=== PATIENT | male | born 1955 | race Caucasian/White ===

== ENCOUNTER 2023-06-12 09:48 | Outpatient (AMB) | payer OTHER, SELFPAY ==
--- NOTE | 2023-06-12 10:00 | A.OFFVIS_ITS ---
Intake Vital Signs 06/12/23 10:01 Height 6 ft Weight 235 lb BMI 31.9 BP 120/88 Blood Pressure Location Lt brachial Position Sitting Pulse 77 Pulse Source Pulse Oximeter Intake Visit Reasons: Hypertension Iuss Acoustic Analyst Required: No Accompanied by: Spouse Allergies No Known Allergies Allergy (Verified 06/12/23 10:04) HPI HPI Comments History of Present Illness Details I had the delight of seeing Darshan in follow-up for his hypertension. He continues to be very active. He is compliant with his medications. He denies any chest pain, shortness of breath, proximal nocturnal dyspnea, orthopnea, pedal edema. He has no urinary or orthostatic symptoms. He does not take any excessive nonsteroidal anti-inflammatory medications. He monitors his blood pressure at home and is well controlled. He has gained some weight. He is not a smoker. He has not had any medication changes lately. He had been having prostatic issues and initially was on tamsulosin without much effect. He has been initiated on finasteride and is contemplating surgical intervention. His triglyceride levels have been high he but continues to take his simvastatin regularly. He hydrates himself well. He had no active complaints at the time of this office visit. [facility] Medical History (Updated 06/13/23 @ 05:35 by Ron Siegel MD) Hypertension Family History (Updated 06/12/23 @ 10:06 by Cata Lacey MA) Mother Hypertension Father Hypertension Social History (Updated 06/12/23 @ 10:06 by Cata Lacey MA) Alcohol intake: current Patient Tobacco Use Status: Never used Tobacco Physical Exam Vital Signs: Last Vital Signs Pulse 77 06/12/23 10:01 BP 120/88 06/12/23 10:01 BMI result Body Mass Index 31.9 Const General: comfortable and no acute distress Orientation/consciousness: patient oriented x3 HEENT Head: Yes normocephalic Mouth: Normal oral and palatal mucosa present Eyes EOM: EOMs intact bilaterally Neck Neck: Yes supple Resp Auscultation: clear to auscultation bilaterally Cardio Jugular venous distension: no JVD Rate: regular rate GI Palpation (GI): Soft to palpation Auscultation: normal bowel sounds General: Yes no CVA tenderness Back/Spine/Pelvis Back: no CVA tenderness Skin General skin exam: no rashes or lesions noted Neuro General: patient oriented x3 and moves all extremities Extrem General: Yes no pedal edema Assessment & Plan Assessment & Plan (1) Hypertension: Code(s): I10 - Essential (primary) hypertension Qualifiers: Hypertension type: primary hypertension Qualified Code(s): I10 - Essential (primary) hypertension Plan Darshan has longstanding hypertension. His blood pressure is currently well controlled on repeat reading in the office and by himself at home. He tries to maintain a low-sodium diet. He is very active. He has gained some weight. He is not a smoker. His triglyceride levels needs to be brought down. He could continue his current dose of antihypertensive medications and statins. He has no myalgia. His liver functions had been normal as per the patient. His electrolytes and renal functions had been acceptable. He has seen the urologist. His tamsulosin has been discontinued and is currently on finaste ride. He is contemplating surgical intervention as his urinary symptoms are affecting his quality of life. I did not make any medication changes today. All his and his 's questions were answered. Follow-up lab orders were done. Time spent during encounter, retrieval of data and documentation 24 minutes. Orders: Orders Electrolytes 06/12/23 I10 - Essential (primary) hypertension Blood Urea Nitrogen 06/12/23 I10 - Essential (primary) hypertension Creatinine 06/12/23 I10 - Essential (primary) hypertension Calcium 06/12/23 I10 - Essential (primary) hypertension Protein Creatinine Ratio, Ur 06/12/23 I10 - Essential (primary) hypertension Coding Level of Care Code Est Pt Level 3 (18931) Diagnoses Primary hypertension I10 Hypertension type: primary hypertension
[2023-06-12 10:01] VITALS: BP 120/88; PULSE 77; BMI 31.9
== END 2023-06-12 11:00 | disposition home or self-care (01) ==
PROVIDERS: Visit Provider Internal Medicine Nephrology
DX: I10 Essential (primary) hypertension (principal)
CPT/HCPCS: 99213

== ENCOUNTER → 2023-06-12 09:48 | Outpatient (BNVA) | payer OTHER, SELFPAY | PROVIDERS: Visit Provider Internal Medicine Nephrology ==

== ENCOUNTER 2024-04-06 09:47 | Outpatient (AMB) | payer OTHER, SELFPAY ==
--- NOTE | 2024-04-06 09:55 | HO.NEPHOV ---
Vital Signs 04/06/24 09:56 Height 6 ft Weight 230 lb BMI 31.2 BP 140/88 H Blood Pressure Location Lt brachial Position Sitting Pulse 72 Pulse Source Pulse Oximeter Pulse Oximetry (%) 91 L Oxygen Delivery Method Room Air Intake Visit Reasons: follow-up - Conf Hot Plate Plywood Press Laborer Required: No Accompanied by: Self / Same As Patient Allergies No Known Allergies Allergy (Verified 04/06/24 09:57) HPI Comments Details: I had the delight of seeing Darshan in follow-up for his hypertension. He continues to be very active. He is compliant with his medications. He had TURP . At that time he was found to bladder cancer which has been closely followed by Urology. He also COVID pneumonia. He is back to baseline. He denies any chest pain, shortness of breath, proximal nocturnal dyspnea, orthopnea, pedal edema. He has no urinary or orthostatic symptoms. He does not take any excessive nonsteroidal anti-inflammatory medications. He monitors his blood pressure at home and is well controlled. He is not a smoker. His triglyceride levels have been high he but continues to take his simvastatin regularly. He hydrates himself well. He had no active complaints at the time of this office visit. [facility] Medical History (Updated 06/13/23 @ 05:35 by Ron Siegel MD) Hypertension Family History Mother Hypertension Father Hypertension Social History Alcohol intake: current Patient Tobacco Use Status: Never used Tobacco Review of Systems Const All systems reviewed & are unremarkable except as noted in HPI and below Physical Exam Vital Signs: Last Vital Signs Pulse 72 04/06/24 09:56 BP 140/88 H 04/06/24 09:56 Pulse Ox 91 L 04/06/24 09:56 Oxygen Delivery Method Room Air 04/06/24 09:56 BMI result Body Mass Index 31.2 Const General: comfortable and no acute distress Orientation/consciousness: patient oriented x3 HEENT Head: Yes normocephalic Mouth: Normal oral and palatal mucosa present Eyes EOM: EOMs intact bilaterally Neck Neck: Yes supple Resp Auscultation: clear to auscultation bilaterally Cardio Jugular venous distension: no JVD Rate: regular rate GI Palpation (GI): Soft to palpation Auscultation: normal bowel sounds General: Yes no CVA tenderness Back/Spine/Pelvis Back: no CVA tenderness Skin General skin exam: no rashes or lesions noted Neuro General: patient oriented x3 and moves all extremities Extrem General: Yes no pedal edema Results Reviewed Nephrology Results: No Data to Display Assessment & Plan Assessment & Plan (1) Hypertension: Code(s): I10 - Essential (primary) hypertension Category: Medical Qualifiers: Hypertension type: primary hypertension Qualified Code(s): I10 - Essential (primary) hypertension Plan Darshan has longstanding hypertension. His blood pressure is currently well controlled . He tries to maintain a low-sodium diet. He is very active. He is not a smoker. His triglyceride levels needs to be brought down. He could continue his current dose of antihypertensive medications and statins. He has no myalgia. His liver functions had been normal as per the patient. His electrolytes and renal functions had been acceptable. He follows up closely with urologist. I did not make any medication changes today. Follow-up lab ordered. Orders: Orders Creatinine Today I10 - Essential (primary) hypertension Calcium Today I10 - Essential (primary) hypertension Protein Creatinine Ratio, Ur Today I10 - Essential (primary) hypertension Blood Urea Nitrogen Today I10 - Essential (primary) hypertension Electrolytes Today I10 - Essential (primary) hypertension UA and rflx microscopic Today I10 - Essential (primary) hypertension Coding Level of Care Code Est Pt Level 4 (22212) Diagnoses Primary hypertension I10 Hypertension type: primary hypertension
[2024-04-06 09:56] VITALS: BP 140/88; PULSE 72; O2SAT 91; BMI 31.2
== END 2024-04-06 10:19 | disposition home or self-care (01) ==
PROVIDERS: Visit Provider Internal Medicine Nephrology
DX: I10 Essential (primary) hypertension (principal)
CPT/HCPCS: 99214

== ENCOUNTER → 2024-04-06 09:47 | Outpatient (BNVA) | payer OTHER, SELFPAY | PROVIDERS: Visit Provider Internal Medicine Nephrology ==

== ENCOUNTER 2025-05-23 09:36 | Outpatient (REF) | payer OTHER, SELFPAY ==
--- OUTSIDE RECORDS SUMMARY | 2025-04-11 10:58 | XMS_ITS ---
Author Organization [facility] Address [address] [place], [place] [phone] Care Team Providers Care Bicycle Repair Technician Name Role Phone ROBERT ENGEL Primary Care Provider [phone] REASON FOR VISIT Referral to police judge Encounters Encounter Location Date Provider Diagnosis [facility] [address] [place] [phone] 04/11/2025 ROBERT ENGEL PLAN OF TREATMENT Next Appt Details Provider Name:ROBERT MCCORD, 07/18/2025 12:45:00 PM, [address] [place], [address],
--- OUTSIDE RECORDS SUMMARY | 2025-04-13 07:23 | XMS_ITS ---
Author Organization [facility] Address [address] [place], [place] [phone] Care Team Providers Care Cant Gang Sawyer Name Role Phone ROBERT ENGEL Primary Care Provider REASON FOR REFERRAL Reason Referral to Dr. Pricila Lambert pulmonary send the past pulmonary consult notes my note in the last year x-rays CAT scans to him Diagnosis 1 Nocturnal hypoxia (G 47.34) Referral Organization [facility] Referring Provider First Name ROBERT Referring Provider Last Name TORO Referring Provider Speciality Internal M edicine Referral Priority Routine REASON FOR VISIT dr mari Encounters Encounter Location Date Provider Diagnosis [address] [address] 04/13/2025 ROBERT ENGEL Nocturnal hypoxia G47.34 ASSESSMENTS [...] Provider Name:ROBERT MCCORD, 07/18/2025 12:45:00 PM, [address] [place], [address], Consultation Request Notes Referral Date Referring Provider Referred Provider Not es 04/13/2025 ROBERT ENGEL , Referral to Dr. Jason Lambert pulmonary send the past pulmonary consult notes my note in the last year x-rays CAT scans to him
--- OUTSIDE RECORDS SUMMARY | 2025-04-14 06:30 | XMS_ITS ---
Author Organization [facility] Address [address] [place], [place] [phone] Care Team Providers Care Ux Developer Name Role Phone ROBERT ENGEL Primary Care Provider REASON FOR VISIT Fax Info Encounters Encounter Location Date Provider Diagnosis [facility] [address] [place] [phone] 04/14/2025 ROBERT ENGEL PLAN OF TREATMENT Next Appt Details Provider Name:ROBERT MCCORD, 07/18/2025 12:45:00 PM, [address] [place], [address],
--- OUTSIDE RECORDS SUMMARY | 2025-04-16 06:05 | XMS_ITS ---
Author Organization [facility] Address [address] [place], [place] [phone] Care Team Providers Care Mechanical Press Operator Name Role Phone ROBERT ENGEL Primary Care Provider [phone] Encounters Encounter Location Date Provider Diagnosis [address] [address] 04/16/2025 ROBERT ENGEL PLAN OF TREATMENT Next Appt Details Provider Name:ROBERT MCCORD, 07/18/2025 12:45:00 PM, [address] [place], [address],
--- OUTSIDE RECORDS SUMMARY | 2025-04-16 06:10 | XMS_ITS ---
Author Organization [facility] Address [address] [place], [place] [phone] Care Team Providers Care Retail Custodial Associate Name Role Phone ROBERT ENGEL Primary Care Provider RESULTS Component Value Reference Range Notes Exercise Stress Test Reviewed date:05/03/2025 09:22:09 AM Interpretation: Performing Lab: Notes/Report: Exercise Stress Test Reviewed date:05/03/2025 09:22:09 AM Interpretation: Performing Lab: Notes/Report: Encounters Encounter Location Date Provider Diagnosis [address] [address] 04/16/2025 ROBERT ENGEL Nocturnal hypoxia G47.34 ASSESSMENTS Encounter Date Diagnosis Assessment Notes Treatment Notes Treatment Clinical Notes Section Notes 04/16/2025 Nocturnal hypoxia (ICD-10 - G47.34) PLAN OF TREATMENT Next Appt Details Provider Name:ROBERT MCCORD, 07/18/2025 12:45:00 PM, [address] [place] [address], [address],
--- OUTSIDE RECORDS SUMMARY | 2025-04-18 07:03 | XMS_ITS ---
Author Organization [facility] Address [address] [place], [place] [phone] Care Team Providers Care District Sales Representative Name Role Phone ROBERT ENGEL Primary Care Provider REASON FOR VISIT dr tena notes Encounters Encounter Location Date Provider Diagnosis [facility] [address] [place] [address] 04/18/2025 ROBERT ENGEL PLAN OF TREATMENT Next Appt Details Provider Name:ROBERT MCCORD, 07/18/2025 12:45:00 PM, [address] [place], [address],
--- OUTSIDE RECORDS SUMMARY | 2025-04-21 09:54 | XMS_ITS ---
Author Organization [facility] Address [address] [place], [place] [phone] Care Team Providers Care Cinder Pit Crane Operator Name Role Phone ROBERT ENGEL Primary Care Provider REASON FOR VISIT Pulm Referral Encounters Encounter Location Date Provider Diagnosis [address] [address] 04/21/2025 ROBERT ENGEL PLAN OF TREATMENT Next Appt Details Provider Name:ROBERT MCCORD, 07/18/2025 12:45:00 PM, [address] [place], [address],
--- OUTSIDE RECORDS SUMMARY | 2025-04-26 09:59 | XMS_ITS ---
Author Organization [facility] Address [address] [place], [place] [phone] Care Team Providers Care Electrician Front Name Role Phone ROBERT ENGEL Primary Care Provider [phone] REASON FOR VISIT Fax Order Encounters Encounter Location Date Provider Diagnosis [address] [address] 04/26/2025 ROBERT ENGEL PLAN OF TREATMENT Next Appt Details Provider Name:ROBERT MCCORD, 07/18/2025 12:45:00 PM, [address] [place], [address],
--- OUTSIDE RECORDS SUMMARY | 2025-05-03 05:21 | XMS_ITS ---
Author Organization [facility] Address [address] [place], [place] [phone] Care Team Providers Care Digital Production Artist Name Role Phone ROBERT ENGEL Primary Care Provider REASON FOR VISIT stress test Encounters Encounter Location Date Provider Diagnosis [facility] [address] [place] [phone] 05/03/2025 ROBERT ENGEL PLAN OF TREATMENT Next Appt Details Provider Name:ROBERT MCCORD, 07/18/2025 12:45:00 PM, [address] [place], [address],
--- OUTSIDE RECORDS SUMMARY | 2025-05-17 07:12 | XMS_ITS ---
Author Organization [facility] Address [address] [place], [place] [phone] Care Team Providers Care Jelly Maker Name Role Phone ROBERT ENGEL Primary Care Provider [phone] REASON FOR VISIT Fax Info Encounters Encounter Location Date Provider Diagnosis [facility] [address] [place] [phone] 05/17/2025 ROBERT ENGEL PLAN OF TREATMENT Next Appt Details Provider Name:ROBERT MCCORD, 07/18/2025 12:45:00 PM, [address] [place], [address],
--- OUTSIDE RECORDS SUMMARY | 2025-05-23 10:56 | XMS_ITS | Clinical Summary ---
Author Organization [facility] Address [address] [place] [address] [place] [phone] Phone Care Team Providers Care Director Of Brand Marketing Name Role Phone Shun Perkins MD Primary Care Provider [phone] Encounters Date Type Department Care Team Description 03/04/2025 Telephone [facility] [address] [place] [phone] Unknown, Unknown, Insurance Non- Contracted from Last 3 Months Social History Tobacco Use Types Packs/Day Years Used Date Smoking Tobacco: Never Assessed Sex and Gender Information Value Date Recorded Sex Assigned at Not on file Legal Sex Male 1:36 PM EDT Gender Identity Not on file Sexual Orientation Not on file Plan of Treatment Not on file Medical Devices [place] [id number] [facility] [place] [facility] [place] [address] [facility] H[facility] Care Teams Director Of Brand Marketing Relationship Specialty Start Date End Date Shun Perkins MD [address] [place] [address] PCP - General Internal Medicine 03/02/25 Additional Source Comments The information contained in this document represents components of the legal health record. It is not the complete legal health record.[facility]
--- OUTSIDE RECORDS SUMMARY | 2025-05-23 10:56 | XMS_ITS | Encounter Summary ---
Author Organization [facility] Address [address] [place] [address] [place] [address] Phone Care Team Providers Care Pcb Designer Name Role Phone Shun Perkins MD Primary Care Provider + [phone] Reason for Visit * Reason Onset Date Comments Insurance Non- Contracted 03/04/2025 Encounter Details Date Type Department Care Team (Late st Contact Info) Description 03/04/2025 Telephone [facility] [address] [place] [address] Unknown, Unknown, Insurance Non- Contracted Social History Tobacco Use Types Packs/Day Years Used Date Smoking Tobacco: Never Assessed Sex and Gender Information Value Date Recorded Sex Assigned at Not on file Legal Sex Male 1:36 PM EDT Gender Identity Not on file Sexual Orientation Not on file documented as of this encounter Progress Notes * Madelyn Maher - 03/04/2025 10:33 AM EDT Hi Nikko, This patient's is calling to be scheduled in pulmonary for hypoxia; however, their insurance is coming up as non- contract. Please give the patients a call to discuss and advise. Thanks, Madelyn Sharp [facility] Coordinator Department of Medicine documented in this encounter Plan of Treatment Not on file documented as of this encounter Visit Diagnoses Not on filedocumented in this encounter Care Teams Pcb Designer Relationship Specialty Start Date End Date Shun Perkins MD [address] [place] [phone] PCP - General Internal Medicine 03/02/25 documented as of this encounter Additional Source Comments The information contained in this document represents components of the legal health record. It is not the complete legal health record.[facility]
--- OUTSIDE RECORDS SUMMARY | 2025-05-23 10:56 | XMS_ITS | Encounter Summary ---
Author Organization [facility] [place] [address] Care Team Providers Care Final Cleaner Name Role Phone Shun Perkins MD Primary Care Provider + [phone] Encounter Details Date Type Department Care Team (Late Contact Info) Description 11/29/2024 Lab Requisition [facility] - Main Lab 299 Count Includes [facility] [place] [address] Antonio Romero MD [address] [facility] 120 [place] [phone] Malignant neoplasm of dome of bladder ([facility]/HCC V24, [facility]/HCC V28) Social History Tobacco Use Types Packs/Day Years Used Date Smoking Tobacco: Never Smokeless Tobacco: Never Alcohol Use Standard Drinks/Week Comments Yes 0 (1 standard drink = 0.6 oz pur e alcohol) 7 Interpersonal Safety Answer Date Record ed Physical Abuse Unrecognized value 07/07/2024 Verbal Abuse Unrecognized value 07/07/2024 Sex and Gender Information Value Date Recorded Sex Assigned at Not on file Legal Sex Male 9:11 AM EST Gender Identity Not on file Sexual Orientation Not on file documented as of this encounter Plan of Treatment Upcoming Encounters Date Type Department Care Team (Late Contact Info) Description 06/07/2025 8:30 AM EST Appointment [facility] CT Scan [address] [place] [address] 06/21/2025 9:30 AM EST Office Visit Pulmonology - [place] 175 [facility] [address] [place] [phone] Kellee Hernández MD 230 [place] [phone] 08/10/2025 2:30 PM EST Office Visit [facility] - [facility] 101 300 [facility] 101 [place] [phone] Anders Campa MD 300 [facility] 101 [place] [address] documented as of this encounter Procedures Procedure Name Priority Date/Time Associated Diagnosis Comments AP OUTSIDE CONSULT Routine 11/24/2024 12 :00 AM EDT Malignant neoplasm of dome of bladder (CMS/HCC V24, CMS/HCC V28) documented in this encounter Results * Anatomic pathology outside consult (11/24/2024 12:00 AM EDT) Final Diagnosis A. Urine, Voided, ([id number]): Negative for high grade urothelial carcinoma. Results of UroVysion fluorescence in situ hybridization (FISH) testing: CEP3: Normal CEP7: Normal CEP17: Normal LSI 9p21: Normal Interpretation: Normal profile Controls stained appropriately. Note: The results are intended as a screening device and should be interpreted in association with other clinical and pathological findings. 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 Urine, Voided, [id number]: Received one ThinPrep slide for cytology and one ThinPrep slide for UroVysion FISH 12/02/2024 12:29 PM EDT [facility] Disclaimer Unless otherwise specified, all tissue is 10% NB formalin fixed and paraffin embedded. Technical pathology services provided by [facility] at [address], [place] [address] (CLIA #[id number]/Gianna Fuentes MD, Supply Clerk) 12/02/2024 12:29 PM EDT [facility] Tissue Urine specimen from urethra / Unknown 11/24/2024 11/29/2024 10:10 AM EDT us Antonio Romero MD LAB PATHOLOGY ORDERABLES Final Result [facility] [address] [place] [address], documented in this encounter Visit Diagnoses Diagnosis Malignant neoplasm of dome of bladder (CMS/HCC V24, CMS/HCC V28) Malignant neoplasm of dome of urinary bladder documented in this encounter Care Teams Final Cleaner Relationship Specialty Start Date End Date Shun Perkins MD [address] [place] [phone] PCP - General Internal Medicine 06/25/24 documented as of this encounter
--- OUTSIDE RECORDS SUMMARY | 2025-05-23 10:56 | XMS_ITS | Clinical Summary ---
Author Organization [facility] Address [address] [place] [address] Phone Care Team Providers Care Cra Officer Name Role Phone Shun Perkins MD Primary Care Provider [phone] Allergies No known active allergies Medications losartan-hydroC HLOROthiazide (HYZAAR) 100-25 mg per tablet Take 1 tablet by mouth 1 (one) time each day. Active simvastatin (ZOCOR) 10 mg tablet Take 1 tablet (10 mg total) by mouth. at bedtime Active meloxicam (MOBIC) 15 mg tablet Take 1 tablet (15 mg total) by mouth 1 (one) time each day. 01/13/2025 Active Active Problems Problem Noted Date Diagnosed Date Pulmonary arterial hypertension (CMS/HCC V24, CM S/HCC V28) 12/27/2024 Pneumonitis 12/27/2024 Class 1 obesity 12/21/2024 Hypoxia 12/21/2024 Essential hypertension 10/30/2020 Encounters Date Type Department Care Team Description 04/25/2025 Telephone [facility]iology [facility] [address] [facility] [address] [place] [address] Shun Perkins MD 04/21/2025 Telephone [facility] [address] [place] [phone] Shun Perkins MD 04/20/2025 Telephone Pulmonology [facility] [address] [place] [phone] Anna Bergeron MA 04/19/2025 Telephone Pulmonology [facility] 175 [facility] [address] [place] [phone] Kellee Hernández MD 04/15/2025 Telephone [facility] Cardiology [facility] - [facility] [address] [place] [phone] Shun Perkins MD 04/14/[address] [place] [phone] Shun Perkins MD 04/14/[address] [place] [phone] Shun Perkins MD 04/11/2025 2:30 PM EDT Office Visit Pulmonology [facility] 175 [facility] [address] [place] [phone] Kellee Hernández MD Pneumonia due to infectious organism, unspecified laterality, unspecified part of lung (Primary Dx); Obstructive sleep apnea; Obesity (BMI 30-39.9); PFO (patent foramen ovale) 04/05/2025 12:30 PM EDT Ancillary Procedure [facility] [address] [place] [phone] Hypoxia; Obstructive sleep apnea; Pulmonary arterial hypertension (CMS/HCC V24, CMS/HCC V28) 03/11/2025 Telephone Pulmonology [facility] 175 [facility] [address] [place] [phone] Kellee Hernández MD from Last 3 Months Surgical History Surgery Date Site/Laterality Comments TRANSURETHRAL RESECTION OF PROSTATE HERNIA REPAIR TONSILLECTOMY Medical History Medical History Date Comments Hypertension Hyperlipidemia S/P Turp Bladder cancer (CMS/HCC V24, CMS/HCC V28) 2023 Hypoxemia Social History Tobacco Use Types Packs/Day Years Used Date Smoking Tobacco: Never Smokeless Tobacco: Never Tobacco Cessation:Counseling Given: Not Answered Alcohol Use Standard Drinks/Week Comments Yes 0 (1 standard drink = 0.6 oz pur e alcohol) 7 Interpersonal Safety Answer Date Record ed Physical Abuse Unrecognized value 07/07/2024 Verbal Abuse Unrecognized value 07/07/2024 Sex and Gender Information Value Date Recorded Sex Assigned at Not on file Legal Sex Male 9:11 AM EST Gender Identity Not on file Sexual Orientation Not on file Obstetrics History Last Filed Vital Signs Vital Sign Reading Time Taken Comments Blood Pressure 138/81 04/11/2025 2:25 PM EDT Pulse 94 04/11/2025 2:25 PM EDT Temperature 36.1 C (97 F) 04/11/2025 2:25 PM EDT Respiratory Rate 20 04/11/2025 2:25 PM EDT Oxygen Saturation 96% 04/11/2025 2:25 PM EDT Inhaled Oxygen Concentration - - Weight 108 kg (238 lb) 04/11/2025 2:25 PM EDT Height 182.9 cm (6') 04/11/2025 2:25 PM EDT Body Mass Index 32.28 04/11/2025 2:25 PM EDT Plan of Treatment Upcoming Encounters Date Type Department Care Team (Late st Contact Info) Description 06/07/2025 8:30 AM EST Appointment [facility] CT Scan [address] [place] [phone] 06/21/2025 9:30 AM EST Office Visit Pulmonology - [place] 175 [facility] 200 [place] [phone] Kellee Hernández MD [address] [place] [phone] 08/10/2025 2:30 PM EST Office Visit [facility] - [facility] [address] [phone] Anders Campa MD [address] [address] Health Maintenance Due Date Last Done Comments DTaP,Tdap,and Td Vaccines (1 - Tdap) 1974 Cholesterol Screening (Lipid Panel) 06/30/2022 Hepatitis C Screening 06/30/2022 Social Influencers of Health Screening 06/30/2022 Hypertension/CHF/CAD Annual BMP Blood Test 07/07/2024 Depression Screening 07/28/2024 COVID-19 Vaccine (5 - Moderna risk season) 2025 05/12/2024, 05/15/2023, 05/16/2022, Additional history exists Influenza Vaccine (#1) 2025 , 05/15/2023, 05/07/2022, Additional history exists Falls Risk Assessment 07/07/2025 07/07/2024 RSV Immunization Adult Patients (1 - 1-dose 75+ series) 2032 Colorectal Cancer Screening: Colonoscopy 07/07/2034 07/07/2024 Zoster Vaccines Completed 10/21/2018, 07/01/2018 Pneumococcal Vaccine: 50+ Years Completed 07/30/2022 HIB Vaccines Aged Out No longer eligi ble based on patient's age to complete this topic HPV Vaccines Aged Out No longer eligi ble based on patient's age to complete this topic Hepatitis A Vaccines Aged Out No long er eligible based on patient's age to complete this topic Hepatitis B Vaccines Aged Out No long er eligible based on patient's age to complete this topic IPV Vaccines Aged Out No longer eligi ble based on patient's age to complete this topic MMR Vaccines Aged Out No longer eligi ble based on patient's age to complete this topic Meningococcal ACWY Vaccine Aged Out N o longer eligible based on patient's age to complete this topic Meningococcal B Vaccine Aged Out No l onger eligible based on patient's age to complete this topic RSV Immunization Patients Under 20 months Aged Out No longer eligible based on patient's age to complete this topic Varicella Vaccines Aged Out No longer eligible based on patient's age to complete this topic Procedures Procedure Name Priority Date/Time Associated Diagnosis Comments HOME SLEEP TEST Routine 04/08/2025 10:56 AM EDT Hypoxia TRANSTHORACIC ECHOCARDIOGRAM (TTE) COMPLETE W/ CONTRAST & BUBBLE STUDY Routine 04/05/2025 1:24 PM EDT Hypoxia Obstructive sleep apnea Pulmonary arterial hypertension (CMS/HCC V24, CMS/HCC V28) COLONOSCOPY Routine 07/07/2024 10:01 AM EST Personal history of colon polyps, unspecified from Last 3 Months or Most Recently Relevant to Health Maintenance Results * Home sleep test (04/08/2025 10:56 AM EDT) us Kellee Hernández MD [facility]ENTER ORDERABLES Nicole barrera Result * (ABNORMAL) TRANSTHORACIC ECHOCARDIOGRAM (TTE) COMPLETE W/ CONTRAST & BUBBLE STUDY (04/05/2025 1:24 PM EDT) Left Atrium Minor Galloway 5.9 cm CV PACS Left Atrium Major Galloway 5.8 cm CV PACS LA Area Sys (A2C) 22 cm2 CV PACS LA Area Sys (A4C) 22 cm2 CV PACS LA Volume (BP) 64 mL CV PACS RA Area 13.0 cm2 CV PACS RA 2D Volume 29 mL CV PACS Aortic Sinus Valsalva 3.8 cm CV PACS Ascending Aorta 3.8 cm CV PACS IVSD 1.0 0.6 - 1.0 cm CV PACS LVIDD 4.7 4.2 - 5.8 cm CV PACS LVIDS 2.1(A) 2.5 - 4.0 cm CV PACS LVOT Diameter 2.4 cm CV PACS LVPWD 0.9 0.6 - 1.0 cm CV PACS MV E' Tissue Velocity Lateral 7 cm/s CV PACS MV E' Tissue Velocity Septal 5 cm/s CV PACS LVOT Area 4.5 cm2 CV PACS E Wave Deceleration Time 253(A) 119 - 242 ms CV PACS MV Peak A Jordin 0.93 m/s CV PACS MV Peak E Jordin 0.43 m/s CV PACS RV S' 15 cm/s CV PACS TAPSE 14 mm CV PACS TR Peak Velocity 2.51 m/s CV PACS TR Peak Gradient 25 mmHg CV PACS E/E' Ratio Septal 9 CV PACS E/E' Ratio Averaged 7 CV PACS Relative Wall Thickness ratio 0.38 CV PACS FS 55 % CV PACS LV Mass 2D 153 g CV PACS Ascending Aorta Index 1.65 cm/m2 CV PACS RA 2D Volume Index 13 mL/m2 CV PACS LVIDD Index 2.04 cm/m2 CV PACS LVIDS Index 0.91 cm/m2 CV PACS E/A Ratio 0.5 CV PACS E/E' Ratio Lateral 6 CV PACS LA Volume Index (BP) 28 mL/m2 CV PACS LV Mass Index 2D 67 g/m2 CV PACS BSA 2.35 m2 CV PACS Right Ventricular Peak Systolic Pressure 28 mmHg CV PACS Est. RA Pressure 3 mmHg CV PACS Anatomical Region Laterality Modality Ultrasound Narrative 04/06/2025 12:31 PM EDT Left Ventricle: Left ventricle cavity size is normal. Wall thickness is normal. Systolic function is normal with an ejection fraction of 55-60%. There are no regional LV wall motion abnormalities. There is age appropriate left ventricular diastolic function. Left Atrium: Left atrium cavity size is normal. Saline contrast study is suggestive of intracardiac shunt across the atrial septum. There is fvhb-ix-yxatc shunt at rest and pqkru-ou-zneh shunt on Valsalva noted. Right Ventricle: Right ventricle cavity appears normal. Systolic function is normal. Right Atrium: Right atrium cavity is normal. Mitral Valve: There is trace regurgitation. Aortic Valve: There is no regurgitation or stenosis. Aorta: The aortic root is mildly dilated. The ascending aorta is mildly dilated (3.8 cm). Left Ventricle Left ventricle cavity size is normal. Wall thickness is normal. Systolic function is normal with an ejection fraction of 55-60%. There are no regional LV wall motion abnormalities. There is age appropriate left ventricular diastolic function. Right Ventricle Right ventricle cavity appears normal. Systolic function is normal. Left Atrium Left atrium cavity size is normal. Saline contrast study is suggestive of intracardiac shunt across the atrial septum. There is lpum-jh-juokf shunt at rest and ohsxc-cf-cjav shunt on Valsalva noted. Right Atrium Right atrium cavity is normal. IVC/SVC Inferior vena cava structure is normal. Mitral Valve Mitral valve structure is normal. There is trace regurgitation. There is no evidence of mitral valve stenosis. Tricuspid Valve The leaflets exhibit normal excursion. There is trace regurgitation. There is no evidence of tricuspid valve stenosis. Estimated RA pressure is 3 mmHg. The RVSP is estimated at 28 mmHg. Aortic Valve The aortic valve is trileaflet. There is no regurgitation or stenosis. Pulmonic Valve Visualized portions of the pulmonic valve appear normal. There is no regurgitation or stenosis. Ascending Aorta The aortic root is mildly dilated. The ascending aorta is mildly dilated (3.8 cm). Pericardium Pericardium appears normal. There is no pericardial effusion. Study Details Overall the study quality was technically difficult. Definity contrast was given to enhance imaging and Saline (bubble) study was completed to enhance imaging. us Kellee Hernández MD CV ECHO PROCEDURES Final Res ult * COLONOSCOPY Anesthesia - MAC; [facility] ENDOSCOPY (07/07/2024 10:01 AM EST) Anatomical Region Laterality Modality Other 07/07/2024 9:43 AM EST Impressions 07/07/2024 10:06 AM EST - Diverticulosis in the sigmoid colon. - Three 5 to 7 mm polyps at the hepatic flexure, removed with a cold snare. Resected and retrieved. - The examination was otherwise normal on direct and retroflexion views. Recommendation: - Await pathology results. - Repeat colonoscopy in 3 years for surveillance. Narrative 07/07/2024 10:06 AM EST [facility] GI Patient Name: Pito Grande Procedure Date: 07/07/2024 9:43 AM Date of : 1955 Age: 69 Room: ROOM 14 Gender: Male Note Status: Finalized Attending MD: Pito Bernabe MD, Procedure Date No Time: 07/07/2024 Procedure: Colonoscopy Indications: High risk colon cancer surveillance: Personal history of colonic polyps Providers: Pito Bernabe MD Referring MD: Pito Bernabe MD Medicines: Propofol per Anesthesia Complications: No immediate complications. Estimated Blood Loss: Estimated blood loss: none. Procedure: Pre-Anesthesia Assessment: - ASA Grade Assessment: II - A patient with mild systemic disease. After I obtained informed consent, the scope was passed under direct vision. Throughout the procedure, the patient's blood pressure, pulse, and oxygen saturations were monitored continuously.The Olympus Colonoscope was introduced through the anus and advanced to the cecum, identified by appendiceal orifice and ileocecal valve. The colonoscopy was performed without difficulty. The patient tolerated the procedure well. The quality of the bowel preparation was good. Findings: The perianal and digital rectal examinations were normal. Multiple diverticula were found in the sigmoid colon. Three sessile polyps were found in the hepatic flexure. The polyps were 5 to 7 mm in size. These polyps were removed with a cold snare. Resection and retrieval were complete. The exam was otherwise without abnormality on direct and retroflexion views. Procedure Code(s): --- Professional --- 86060, Colonoscopy, flexible; with removal of tumor(s), polyp(s), or other lesion(s) by snare technique Diagnosis Code(s): --- Professional --- Z86.010, Personal history of colonic polyps D12.3, Benign neoplasm of transverse colon (hepatic flexure or splenic flexure) CPT copyright 2020 [employer]. All rights reserved. The codes documented in this report are preliminary and upon police worker review may be revised to meet current compliance requirements. Pito Bernabe MD 07/07/2024 10:05:54 AM This report has been signed electronically.Pito Bernabe MD Number of Addenda: 0 Note Initiated On: 07/07/2024 9:43 AM Scope In: Scope Out: Endoscopy Department at [facility] - [address] [place] [id number] Procedure Note Pito Bernabe MD - 07/07/2024 [facility] GI Patient Name: Pito Grande Procedure Date: 07/07/2024 9:43 AM Date of : 1955 Age: 69 Room: ROOM 14 Gender: Male Note Status: Finalized Attending MD: Pito Bernabe MD, Procedure Date No Time: 07/07/2024 Procedure: Colonoscopy Indications: High risk colon cancer surveillance: Personalhistory of colonic polyps Providers: Pito Bernabe MD Referring MD: Pito Bernabe MD Medicines: Propofol per Anesthesia Complications: No immediate complications. Estimated Blood Loss: Estimated blood loss: none. Procedure: Pre-Anesthesia Assessment: - ASA Grade Assessment: II - A patient with mild systemic disease. After I obtained informed consent, the scope was passed under direct vision. Throughout theprocedure, the patient's blood pressure, pulse, and oxygen saturations were monitored continuously.The Olympus Colonoscope was introduced through the anus and advanced to the cecum, identified by appendiceal orifice and ileocecal valve. The colonoscopy was performed without difficulty. The patient tolerated the procedure well. The quality of the bowel preparation was good. Findings: The perianal and digital rectal examinations were normal. Multiple diverticula were found in the sigmoidcolon. Three sessile polyps were found in the hepatic flexure. The polyps were 5 to 7 mm in size. These polyps were removed with a cold snare. Resectionand retrieval were complete. The exam was otherwise without abnormality ondirect and retroflexion views. Procedure Code(s): --- Professional --- 13050, Colonoscopy, flexible; with removal of tumor(s), polyp(s), or other lesion(s) by snare technique Diagnosis Code(s): --- Professional --- Z86.010, Personal history of colonic polyps D12.3, Benign neoplasm of transverse colon (hepatic flexure or splenic flexure) CPT copyright 2020 [employer]. All rights reserved. The codes documented in this report are preliminary and upon police worker reviewmay be revised to meet current compliance requirements. Pito Bernabe MD 07/07/2024 10:05:54 AM This report has been signed electronically.Pito Bernabe MD Number of Addenda: 0 Note Initiated On: 07/07/2024 9:43 AM Scope In: Scope Out: Endoscopy Department at [facility] - [address] [place] [phone] IMPRESSION: - Diverticulosis in the sigmoid colon. - Three 5 to 7 mm polyps at the hepatic flexure, removed with a cold snare. Resected andretrieved. - The examination was otherwise normal on directand retroflexion views. Recommendation: - Await pathology results. - Repeat colonoscopy in 3 years for surveillance. Pito Bernabe MD GI~PROCEDURE ORDERABLES Fin al Result from Last 3 Months or Most Recently Relevant to Health Maintenance Insurance [facility] Care Teams Cra Officer Relationship Specialty Start Date End Date Shun Perkins MD [address] [place] [address] PCP - General Internal Medicine 06/25/24
--- OUTSIDE RECORDS SUMMARY | 2025-05-23 10:56 | XMS_ITS | Encounter Summary ---
Author Organization [facility] Address [address] [place] [address] Care Team Providers Care Unit Coordinator Name Role Phone Shun Perkins MD Primary Care Provider [phone] Encounter Details Date Type Department Care Team (Late st Contact Info) Description 04/20/2025 Scanned Document Orthopedic [address] [phone] Shukri Whitlock MD [address] [phone] Social History Tobacco Use Types Packs/Day Years Used Date Smoking Tobacco: Never Assessed Sex and Gender Information Value Date Recorded Sex Assigned at Male 03/01/2025 11:13 AM EDT Legal Sex Male 4:27 PM EDT Gender Identity Male 03/01/2025 11:13 AM EDT Sexual Orientation Not on file documented as of this encounter Plan of Treatment Upcoming Encounters Date Type Department Care Team (Late st Contact Info) Description 07/12/2025 8:00 AM EST Office Visit Orthopedic [address] [phone] Shukri Whitlock MD [address] [phone] documented as of this encounter Visit Diagnoses Not on filedocumented in this encounter Care Teams Unit Coordinator Relationship Specialty Start Date End Date Shun Perkins MD [address] [place] [phone] PCP - General Internal Medicine 04/12/25 documented as of this encounter
--- OUTSIDE RECORDS SUMMARY | 2025-05-23 10:56 | XMS_ITS | Patient Health Record ---
Author Organization [facility] Address [address], [place] [id number] Care Team Providers Care Car Mechanic Name Role Phone ROBERT ENGEL Primary Care Provider [phone] ALLERGIES No Known Allergies REASON FOR REFERRAL Reason HOLD FOR LOCKED NOTE OV Dr. Hernández for shortness of breath and lower than expected oxygen saturation Diagnosis 1 Shortness of breath on exertion (R06.02) Referral Organization [facility] Referring Provider First Name ROBERT Referring Provider Last Name TORO Referring Provider Speciality Internal edicine Referred Provider MARY HERNÁNDEZ Referred Provider Specialty Pulmonary Di monchoes General Notes hold for locked note , Merlene BISHOP 09/03/2024 01:52:43 PM > Per telephone encounter pt saw Dr Hernández on 08/05/24>no referral required as is in network with Insurance plan>faxed to [phone] >encounter closed Referral Priority Urgent Referral Appointment Date 08/05/2024 Diagnosis 1 Borderline low oxyge n saturation level (R79.81) Referral Organization [facility] Referring Provider First Name ROBERT Referring Provider Last Name TORO Referring Provider Speciality Internal edicine General Notes Karlie BISHOP [place] 08/2024 04:00:58 PM > blank ref , pulm ref was previously started Referral Priority Routine Reason Referral to Dr. Carrie Whitlock [facility] for the left knee pain Diagnosis 1 Knee pain, unspecifi ed chronicity, unspecified laterality (M25.569) Referral Organization [facility] Referring Provider First Name ROBERT Referring Provider Last Name TORO Referring Provider Speciality Internal edicine Referral Priority Routine Reason 02/25/25 w appt Refe rral to Dr. Flavia Wetzel at [facility] evaluation for possible shellfish allergy Diagnosis 1 Allergy, sequela (T7 8.40XS) Referral Organization [facility] Referring Provider First Name ROBERT Referring Provider Last Name ENGEL Referring Provider [facility] Referred Provider FLAVIA WETZEL Referred Provider Specialty Allergy/Immu nology General Notes Merlene BISHOP P Admin 07/2024 08:34:59 AM > faxed medical referral and note (recent labs are in notes) to [facility] at [phone]>no referral required Referral Priority Routine Reason 03/04/25Referral to [facility] for consultation regarding nocturnal hypoxia patient will call Diagnosis 1 Nocturnal hypoxia (G 47.34) Referral Organization [facility] Referring Provider First Name ROBERT Referring Provider Last Name TORO Referring Provider [facility] Referred Provider Specialty Pulmonary Di seases General Notes Merlene BISHOP P Admin 02/2025 09:16:31 AM > , Referral to [facility] for consultation regarding nocturnal hypoxia, called [facility] at [phone] pt does not have appt>got fax number>also faxed oon paperwork to EDNA COLEY Lori P Admin 03/10/2025 10:46:56 AM > fax number is [phone]>office is OON with pts insurance>faxed OON Auth Request form to [facility] at [phone] Referral Priority Routine Reason [facility] Referral Organization [facility] Referring Provider First Name ROBERT Referring Provider Last Name TORO Referring Provider [facility] General Notes Calista BISHOP [place] 025 03:17:13 PM > [facility], Dr. Anders Campa , [address] , [address], [facility]. 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 Hernández says the patient has a hole in his heart. Patient was seen by Dr. Hernández today and the office note will be sent to Dr. Engel. [place] is aware Dr. Engel is not in the office this week., w/6 visits, EDNA,Calista Fisher MA 04/13/2025 11:22:29 AM > referral sent to pvc Referral Priority Urgent Reason Referral to Dr. Pricila Lambert pulmonary send the past pulmonary consult notes my note in the last year x-rays CAT scans to him Diagnosis 1 Nocturnal hypoxia (G 47.34) Referral Organization [facility] Referring Provider First Name ROBERT Referring Provider Last Name TORO Referring Provider Speciality Internal M edicine Referral Priority Routine MEDICATIONS Medication SIG (Take, Route, Frequency, Duration) Notes Start Date End Date Status Viagra 100 MG 1 tablet as needed O rally Once a day for 30 day(s) Active Multivitamin - 1 tab(s) orally once a day for 30 day(s) Active Vitamin D 25 MCG (1000 UT) 1 tab(s) oral ly once a day for 30 day(s) Active Losartan Potassium-HCTZ 100-25 MG 1 tablet Orally Once a day for 90 days 03/12/2023 Active Simvastatin 10 MG 1 tablet in the even ing orally once a day (at bedtime) for 90 days Active SOCIAL HISTORY Tobacco Use: Social History Observation Description Date Details (start date - stop date) Never Smoker NA - NA Sex Assigned At : Social History Observation Description Sex Assigned At Unknown Smoking Question Answer Notes Are you a: never smoker PROBLEMS Problem Type ICD Code Onset Dates Problem Status W/U Status Risk SNOMED Code Notes Problem H/o colon adenoma (211.3) Active confirmed Benign neopl asm of colon (25352724) Problem Abnormal findings on radiological or other exams of body structure, NEC (793.99) Active confirmed Radiology result abnormal (335149677) follow up cxr shows improved aeration in LLL, some residual scarring, likely related to previous pneumonia Problem Essential (primary) hypertension (I10) Active confirmed Essential hypertension (56823179) Problem Personal history of colonic polyps (Z86.010) Active confirmed 708794920 Problem Disorder of lipoprotein metabolism, 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) (385985205) Problem Nocturnal hypoxia (G47.34) Active confirmed 191898313 Problem Erectile dysfunction, unspecified erectile dysfunction type (N52.9) Active confirmed 412316255 Problem Benign prostatic hyperplasia, unspecified whether lower urinary tract symptoms present (N40.0) Active confirmed 367605843 Problem Allergy, sequela (T78.40XS) Active confirmed 165768246 VITAL SIGNS Blood pressure diastolic 78 mm Hg 02/24/2025 Height 72 in 02/24/2025 Blood pressure systolic 126 mm Hg 02/24/2025 Weight 230 lbs 02/24/2025 BMI 31.19 kg/m2 02/24/2025 Encounters Encounter Location Date Provider Diagnosis [address] [address] 06/01/2024 ROBERT ENGEL Essential (primary) hypertension I10 ; Disorder of lipoprotein metabolism, unspecified E78.9 and Benign prostatic hyperplasia, unspecified whether lower urinary tract symptoms present N40.0 [place] [id number] 2024 ROBERT ENGEL Essential (primary) hypertension I10 and Disorder of lipoprotein metabolism, unspecified E78.9 [place] [id number] 07/15/2024 ROBERT ENGEL Essential (primary) hypertension I10 ; Disorder of lipoprotein metabolism, unspecified E78.9 ; Pre-diabetes R73.03 ; Benign prostatic hyperplasia, unspecified whether lower urinary tract symptoms present N40.0 ; Borderline low oxygen saturation level R79.81 and Shortness of breath on exertion R06.[address] [address] 07/16/2024 ROBERT ENGEL [address] [address] 07/16/2024 ROBERT ENGEL [place] [id number]/16/2024 ROBERT ENGEL [address] [address] 07/19/2024 ROBERT ENGEL [address] [address] 07/19/2024 ROBERT ENGEL [address] [address] 07/24/2024 ROBERT ENGEL Pre-diabetes R73.03 [place] [phone] 08/04/2024 ROBERT ENGEL [facility] [address] [place] [address] 08/06/2024 ROBERT ENGEL [facility] [address] [place] [address] 10/20/2024 ROBERT [facility] [address] [place] [address] 12/06/2024 ROBERT ENGEL [facility] [address] [place] [address] 01/10/2025 ROBERT ENGEL [facility] [address] [place] [address] 01/10/2025 [facility] [address] [place] [address] 01/13/2025 ROBERT ENGEL Knee pain, unspecified chronicity, unspecified laterality M25.569 ; Essential (primary) hypertension I10 ; Disorder of lipoprotein metabolism, unspecified E78.9 ; Pre-diabetes R73.03 ; Colon cancer screening Z12.11 and Bladder tumor D49.[address] [address] 01/14/[address] [address] 02/21/[address] [address] 02/24/2025 ROBERT ENGEL Essential (primary) hypertension I10 ; Disorder of lipoprotein metabolism, unspecified E78.9 ; Colon cancer screening Z12.11 ; Bladder tumor D49.4 ; Nocturia R35.1 ; Erectile dysfunction, unspecified erectile dysfunction type N52.9 ; Allergy, sequela T78.40XS and Nocturnal hypoxia G47.[address] [address] 03/02/2025 [facility] [address] [place] [address] 03/04/[address] [address] 03/07/[address] [address] 03/10/[address] [address] 04/11/2025 ROBERT ENGEL [facility] [address] [place] [address] 04/13/2025 ROBERT ENGEL Nocturnal hypoxia G47.34 [facility] [address] [place] [address], [place] [address] 04/14/2025 ROBERT ENGLE [address] [place] [address] 04/16/2025 ROBERT ENGEL [facility] [address] [place] [address], [place] [address] 04/16/2025 ROBERT ENGEL Nocturnal hypoxia G47.[address] [place] [address] 04/18/2025 ROBERT ENGEL [address] [place] [address] 04/21/2025 ROBERT ENGEL [address] [place] [address] 04/26/2025 ROBERT ENGEL [address] [address] 05/03/2025 ROBERT ENGEL [address] [address] 05/17/2025 ROBERT ENGEL ASSESSMENTS Encounter Date Diagnosis Assessment Notes Treatment Notes Treatment Clinical Notes Section Notes 04/16/2025 Nocturnal hypoxia (ICD-10 - G47.34) 04/13/2025 Nocturnal hypoxia (ICD-10 - G47.34) 01/13/2025 Knee pain, unspecified chronicity, unspecified laterality (ICD-10 - M25.569) Symptoms x 3 weeks. Mild swelling of the left knee. No significant effusion noted. Check an x-ray. Check CBC sed rate uric acid and check a Lyme titer. Will treat with meloxicam for 1 to 2 weeks. Check x-ray. Set up for orthopedic consultation 01/13/2025 Essential (primary) hypertension (ICD-10 - I10) Stable no change in therapy seems to be well-controlled 07/24/2024 Pre-diabetes (ICD-10 - R73.03) 2024 Disorder of lipoprotein metabolism, unspecified (ICD-10 - E78.9) 2024 Essential (primary) hypertension (ICD-10 - I10) 06/01/2024 Disorder of lipoprotein metabolism, unspecified (ICD-10 - E78.9) 06/01/2024 Essential (primary) hypertension (ICD-10 - I10) 07/15/2024 Disorder of lipoprotein metabolism, unspecified (ICD-10 - E78.9) Continue statin. Check lipid profile total cholesterol goal is in 200 LDL less than 100 07/15/2024 Essential (primary) hypertension (ICD-10 - I10) Blood pressure well-controlled no change in therapy check EKG 02/24/2025 Disorder of lipoprotein metabolism, unspecified (ICD-10 - E78.9) Continue statin therapy review of systems negative for side effects check lipid profile LDL goal less than 100 total cholesterol less than 200 02/24/2025 Essential (primary) hypertension (ICD-10 - I10) Blood pressure on recheck within normal limits. Therefore no change in therapy. Strongly recommend patient monitor blood pressure at home 3-4 times a week instructed call if greater than 130/80. Walk 30 minutes a day no added salt diet liberalize potassium in the diet check EKG sinus rhythm no change 02/24/2025 Colon cancer screening (ICD-10 - Z12.11) Stable up-to-date physical exam normal no symptoms 07/15/2024 Pre-diabetes (ICD-10 - R73.03) No polyuria polydipsia no weight loss check blood sugar diet exercise weight management 06/01/2024 Benign prostatic hyperplasia, unspecified whether lower urinary tract symptoms present (ICD-10 - N40.0) 01/13/2025 Disorder of lipoprotein metabolism, unspecified (ICD-10 - E78.9) Diet exercise weight maintenance. Follow-up at next OV 02/24/2025 Bladder tumor (ICD-10 - D49.4) Follow-up with urology. Cystoscopy fortunately negative on recheck. Check UA 07/15/2024 Benign prostatic hyperplasia, unspecified whether lower urinary tract symptoms present (ICD-10 - N40.0) Check check PSA follow-up in 1 year if normal 01/13/2025 Pre-diabetes (ICD-10 - R73.03) Check blood sugar check A1c 02/24/2025 Nocturia (ICD-10 - R35.1) PSA up-to-date 07/15/2024 Borderline low oxygen saturation level (ICD-10 - R79.81) O2 sat adequate below for what I would expect with patient is not a COPD patient. He does not have a history of obstructive sleep apnea. Although he is never been tested although we are going to get this checked. No chest pain no CHF. Will check a chest x-ray check BNP check D-dimer check O2 sat 93% on room air. Set up consultation with pulmonary stat CT scan of the chest 01/13/2025 Colon cancer screening (ICD-10 - Z12.11) Colonoscopy up-to-date several polyps. Will recheck in 3 years 02/24/2025 Erectile dysfunction, unspecified erectile dysfunction type (ICD-10 - N52.9) As needed Viagra with good relief 07/15/2024 Shortness of breath on exertion (ICD-10 - R06.02) 01/13/2025 Bladder tumor (ICD-10 - D49.4) 02/24/2025 Allergy, sequela (ICD-10 - T78.40XS) Referral to Dr. Flavia Wetzel for allergy evaluation 02/24/2025 Nocturnal hypoxia (ICD-10 - G47.34) Pulmonary is not send me any records. Patient is on O2 at nighttime now. Will check the consultation reports. Also put a consult in for [facility] Department of pulmonary PLAN OF TREATMENT Future Test Test Name Order Date Prostate-Specific Ag (PSA)-[id number] 2023 CBC, Platelet, w/o Differential-[id number] 1 08/22/2023 Lipid Panel-[id number] 06/22/2024 Hepatic Function Panel ([id number] 2023 BMP8+[id number] 06/22/2024 Next Appt Details Provider Name:ROBERT MCCORD, 07/18/2025 12:45:00 PM, [address] [place], [address], Insurance Providers Payer Name Payer Address Payer Phone Subscriber Number Group Number Insured Name Patient Relationship to Insured Coverage Start Date Coverage End Date [facility] [address] [place] [id number] Self - patient is the insured 3 MEDICAL (GENERAL) HISTORY Medical History History ICD Code high cholesterol 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 yo polyps x 2 recheck May 2024 Hypertension Benign prostatic hypertrophy Dr. Herve Murdock ay 2023 OV Vaccination status COVID 4 s hots. Flu shot q. year. Pneumovax 2015. Tetanus 2021 Shingrix 2 shots Prediabetes. A1c 5.02 January 2023 Colonoscopy June 2024 3 polyps repea t June 2027 Urology follow-up May 2024 cystosco py negative. Status post TURP for Art Romero follow-u p October 2024 History of an incidentally found bladder tumor during TURP Chest CT October 2024 coronary artery calcifications. Scattered areas of bronchiolitis ordered by pulmonary Echocardiogram December 2024 Dr. Alex Pandey. EF 55 to 60% no valvular abnormalities Surgical History Surgery Date(Month/Year) T & A
--- OUTSIDE RECORDS SUMMARY | 2025-05-23 10:57 | XMS_ITS ---
Author Name [facility] Organization Unknown History of Medication Use Medication Directions Dispensed Refills Start Date End Date Stat us betamethasone acetate-betamethaso ne sodium phosphate (CELESTONE) injection 12 mg 12 mg, Intra-articular, Once PRN Procedure, Starting on Fri04/12/25 at 1515, For 1 dose 04/12/2025 04/12/2025 completed No known medications No known medications active Problems Problem Status Onset Date Problem Type Date of Resoluti on Source Acute pain of left knee active EncounterDiagnosisAct HHCCT Encounters Encounter Type Encounter Reason Primary Diagnosis Location Date Ambulatory Pain [facility] [place] 04/12/2025 [facility] [place] 03/01/2025 Ambulatory Pain in left knee Pain in left knee [facility] 03/01/2025 Care Team Organization Name Specialty Phone Email Start Date End Da te [employer] TORO Primary Care 04/12/2025 05/11/2025 [employer] ROBERT ENGEL Primary Care 04/12/2025 [employer] 03/03/2025 05/11/2025 [employer] NO PCP Primary Care 03/01/2025 [employer] 02/09/2025
--- OUTSIDE RECORDS SUMMARY | 2025-05-23 10:57 | XMS_ITS | Encounter Summary ---
Author Organization [facility] [place] [address] Care Team Providers Care Loan Expeditor Name Role Phone Shun Perkins MD Primary Care Provider + [phone] Encounter Details Date Type Department Care Team (Late Contact Info) Description 06/04/2024 Lab Requisition [facility] [address] [facility] [place] [phone] Antonio Romero MD [address] [facility] [address] [place] [phone] Malignant neoplasm of dome of bladder ([facility]/HCC V24, CMS/HCC V28) Social History Tobacco Use Types Packs/Day [...] Info) Description 06/07/2025 8:30 AM EST Appointment [facility] CT Scan [address] [place] [address] 06/21/2025 9:30 AM EST Office Visit Pulmonology - [place] [address] [facility] [address] [place] [address] Kellee Hernández MD [address] [place] [address] 08/10/2025 2:30 PM EST Office Visit [facility] [address] [phone] Anders Campa MD [address] [address] documented as of this encounter Procedures Procedure Name Priority Date/Time Associated Diagnosis Comments AP OUTSIDE CONSULT Routine 05/31/2024 12 :00 AM EST Malignant neoplasm of dome of bladder (CMS/HCC) documented in this encounter Results * Anatomic pathology outside consult (05/31/2024 12:00 AM EST) Final Diagnosis A. Urine, Voided ([id number]): Negative for high grade urothelial carcinoma. Results of [employer] fluorescence in situ hybridization (FISH) testing: CEP3: Normal CEP7: Normal CEP17: Normal LSI 9p21: Normal Interpretation: Normal profile Controls stained appropriately. Note: The results are intended as a screening device and should be interpreted in association with other clinical and pathological findings. 06/08/2024 12:35 PM [facility] Gross Description A. Urine, Voided, : [id number] Received 1 TP (CYTO) 1 TP (FISH) 06/08/2024 12:35 PM [facility] Disclaimer Unless otherwise specified, all tissue is 10% NB formalin fixed and paraffin embedded. 06/08/2024 12:35 PM [facility] Tissue Urine specimen from urethra / Unknown 05/31/2024 06/04/2024 4:27 PM EST Antonio Romero MD LAB PATHOLOGY ORDERABLES Final Result [facility] [address] [place] [address], documented in this encounter Visit Diagnoses Diagnosis Malignant neoplasm of dome of bladder (CMS/HCC V24, CMS/HCC V28) Malignant neoplasm of dome of urinary bladder documented in this encounter Care Teams Loan Expeditor Relationship Specialty Start Date End Date Shun Perkins MD [address] [place] [address] PCP - General Internal Medicine 06/25/24 documented as of this encounter
--- OUTSIDE RECORDS SUMMARY | 2025-05-23 10:57 | XMS_ITS | Clinical Summary ---
Author Organization [facility] Address [address] [place] [address] Care Team Providers Care Coil Shaper Name Role Phone Robert Engel MD Primary Care Provider [phone] Medications No known medications Active Problems No known active problems Encounters Date Type Department Care Team Description 04/20/2025 Scanned Document [facility] [address] [place] [address] Shukri Whitlock MD 04/20/2025 Orders Only [facility] [address] [phone] Shukri Whitlock MD Acute pain of left knee (Primary Dx) 04/20/2025 Orders Only [facility] [address] [phone] Shukri Whitlock MD 04/12/2025 3:15 PM EDT Office Visit [facility] [address] [phone] Shukri Whitlock MD Acute pain of left knee (Primary Dx) 03/01/2025 2:35 PM EDT Ancillary Procedure [facility] [address] [phone] 03/01/2025 2:15 PM EDT Consult [facility] [address] [phone] Shukri Whitlock MD Acute pain of left knee (Primary Dx) from Last 3 Months Social History Tobacco Use Types Packs/Day Years Used Date Smoking Tobacco: Never Assessed Sex and Gender Information Value Date Recorded Sex Assigned at Male 03/01/2025 11:13 AM EDT Legal Sex Male 4:27 PM EDT Gender Identity Male 03/01/2025 11:13 AM EDT Sexual Orientation Not on file Plan of Treatment Upcoming Encounters Date Type Department Care Team (Late st Contact Info) Description 07/12/2025 8:00 AM EST [facility] Visit [facility] [address] [phone] Shukri Whitlock MD [address] [facility] [address] [place] [address] Health Maintenance Due Date Last Done Comments Advance Care Planning 1955 Hepatitis C Virus Screening 1955 DTaP/Tdap/Td Vaccines (1 - Tdap) 1976 Colonoscopy 2002 Pneumococcal Vaccines 50+ (1 of 1 - PCV) 2007 Zoster (Shingles) Vaccine (1 of 2) 2007 Influenza Vaccine 02/25/2025 COVID-19 Vaccine (1 - 2023-2 5 season) 2025 RSV Vaccine 50 years and old er and Patients (1 - 1-dose 75+ series) 2032 Hepatitis B Vaccines Aged Out No long er eligible based on patient's age to complete this topic Procedures Procedure Name Priority Date/Time Associated Diagnosis Comments MRI KNEE W/O CONTRAST-LEFT Routine 05/18/2025 7:30 AM EDT Acute pain of left knee ID ARTHROCENTESIS ASPIR&/INJ MAJOR JT/BURSA W/O US Routine 04/12/2025 3:15 PM EDT Acute pain of left knee XR KNEE 4+ VIEWS-LEFT Routine 03/01/2025 2:40 PM EDT Acute pain of left knee from Last 3 Months Results * MRI Knee w/o contrast-Left (05/18/2025 7:30 AM EDT) Anatomical Region Laterality Modality Knee Left Magnetic Resonan ce 05/18/2025 7:00 AM EDT 05/18/2025 7:00 AM EDT Impressions 05/19/2025 1:54 PM EDT 1. Complex tearing of the medial meniscus posterior body and posterior horn with a meniscal flap adjacent to the posterior root measuring up to 1.0 cm. 2. Mild osseous contusions within the medial femoral condyle and adjacent medial tibial plateau. No associated fracture line. 3. Minimal patellofemoral and medial compartment arthrosis. Small joint effusion. Electronically signed by: Maciej Flores MD 05/19/2025 01:54 PM EDT RP Thank you for referring your patient to us, Maciej Flores MD [phone] (Electronically Signed - 05/19/2025 13:54) Copy: ROBERT ENGEL MD [address] [address] PATIENT , Narrative 05/19/2025 1:54 PM EDT EXAMINATION: MR KNEE WITHOUT CONTRAST, LEFT CLINICAL INFORMATION: Left knee pain. COMPARISON: No relevant prior studies are available for comparison. TECHNIQUE: Multiplanar MR images of the left knee were obtained on a high-field scanner without intravenous contrast. FINDINGS: MENISCI: Medial Meniscus: Complex tearing of the posterior body extending through the posterior horn with irregular components contacting both the femoral and tibial articular surfaces involving the inner two-thirds of the meniscus. There is a meniscal flap adjacent to the posterior root measuring up to 1.0 cm in greatest dimension. Lateral Meniscus: Intact. LIGAMENTS: Cruciate: Intact. Collateral: Intact. EXTENSOR MECHANISM: Intact quadriceps and patellar tendons. ARTICULAR CARTILAGE/BONE: Patellofemoral Compartment: Inferior medial trochlea signal heterogeneity with areas of fullness fissuring and tiny marginal osteophytes. Medial Compartment: Minimal central medial femoral condyle articular cartilage thinning and signal heterogeneity with tiny marginal osteophytes. Mild marrow edema within the medial femoral condyle and adjacent medial tibial plateau adjacent to the meniscal tear and consistent with osseous contusions. No fracture line. Lateral Compartment: Intact articular cartilage. JOINT FLUID AND BURSAE: Small joint effusion. Procedure Note Maciej Flores MD - 10/23/2025 EXAMINATION: MR KNEE WITHOUT CONTRAST, LEFT CLINICAL INFORMATION: Left knee pain. COMPARISON: No relevant prior studies are available for comparison. TECHNIQUE: Multiplanar MR images of the left knee were obtained on a high-fieldscanner without intravenous contrast. FINDINGS: MENISCI: Medial Meniscus: Complex tearing of the posterior body extending throughthe posterior horn with irregular components contacting both the femoraland tibial articular surfaces involving the inner two-thirds of themeniscus. There is a meniscal flap adjacent to the posterior root measuring up to 1.0 cm in greatestdimension. Lateral Meniscus: Intact. LIGAMENTS: Cruciate: Intact. Collateral: Intact. EXTENSOR MECHANISM: Intact quadriceps and patellar tendons. ARTICULAR CARTILAGE/BONE: Patellofemoral Compartment: Inferior medial trochlea signal heterogeneitywith areas of fullness fissuring and tiny marginal osteophytes. Medial Compartment: Minimal central medial femoral condyle articularcartilage thinning and signal heterogeneity with tiny marginalosteophytes. Mild marrow edema within the medial femoral condyle andadjacent medial tibial plateau adjacent to the meniscal tear and consistent with osseous contusions. No fracture line. Lateral Compartment: Intact articular cartilage. JOINT FLUID AND BURSAE: Small joint effusion. IMPRESSION: 1. Complex tearing of the medial meniscus posterior body and posteriorhorn with a meniscal flap adjacent to the posterior root measuring up to1.0 cm. 2. Mild osseous contusions within the medial femoral condyle and adjacentmedial tibial plateau. No associated fracture line. 3. Minimal patellofemoral and medial compartment arthrosis. Small jointeffusion. Electronically signed by: Maciej Flores MD 05/19/2025 01:54 PM EDT RPWorkstation: [id number] Thank you for referring your patient to us, Maciej Flores MD [id number] (Electronically Signed - 05/19/2025 13:54) Copy: ROBERT ENGEL MD [facility] [address] [place] [id number] PATIENT , us Shukri Whitlock MD IM MRI ORDERABLES Final Result * ID ARTHROCENTESIS ASPIR&/INJ MAJOR JT/BURSA W/O US (04/12/2025 3:15 PM EDT) Narrative Shukri Whitlock MD - 04/12/2025 3:15 PM EDT Shukri Whitlock MD 04/14/2025 7:01 AM Lg Joint Arthro: L knee on 04/12/2025 3:15 PM Indications: pain Details: 22 G needle, anteromedial approach Medications: 12 mg betamethasone acetate-betamethasone sodium phosphate 6 (3-3) MG/ML Outcome: tolerated well, no immediate complications The steroid was given with 4 mL of 1% lidocaine. We discussed that diabetic patients may experience elevation in blood sugars with steroid injection and that the patient should monitor their blood sugars accordingly. Risks of infection, bleeding, injury, failure of the injection to work were reviewed and understood. They understand the injection may take a few days to work and will last for a variable amount of time, typically between 3-6 months for most patients. It will not relieve all pain but can improve symptoms. Procedure, treatment alternatives, risks and benefits explained, specific risks discussed. Consent was given by the patient. Patient was prepped and draped in the usual sterile fashion. us Shukri Whitlock MD PROCEDURE/MINOR SURGICAL ORDERABLES Final Result * XR Knee 4+ views-Left (03/01/2025 2:40 PM EDT) Narrative [facility] - 03/01/2025 2:40 PM EDT This exam was performed in office at [facility] and images reviewed by orthopedic provider. Any findings are documented within ambulatory encounter note on date of service. us Shukri Whitlock MD IMG DIAGNOSTIC IMAGING O RDERABLES Final Result [facility] from Last 3 Months Insurance [facility] Care Teams Coil Shaper Relationship Specialty Start Date End Date Robert Engel MD [address] [place] [id number] PCP - General Internal Medicine 04/12/25
--- OUTSIDE RECORDS SUMMARY | 2025-05-23 10:57 | XMS_ITS | Clinical Summary ---
Author Organization [facility] Address [address] [facility] [address] [place] [address] Phone Care Team Providers Care Edi Specialist Name Role Phone Shun Perkins MD Primary Care Provider Allergies No known active allergies Medications Cholecalciferol 50 MCG (1999) capsule Take 1 capsule by mouth 1 (one) time each day Active simvastatin (ZOCOR) 10 MG tablet Take 1 tablet by mouth 1 (one) time each day 03/23/2021 Active tamsulosin (FLOMAX) 0.4 MG 24 hr capsule Take 0.4 mg by mouth 1 (one) time each day Active losartan-hydroC HLOROthiazide (HYZAAR) 100-25 MG per tablet TAKE 1 TABLET BY MOUTH DAILY 30 tablet 5 10/09/2022 Active Active Problems Problem Noted Date Diagnosed Date Hypertension 04/10/2021 Essential hypertension 10/30/2020 Family History Medical History Relation Comments Heart disease Father Hypertension Father Hypertension Mother Relation Status Comments Father Alive Mother Social History Tobacco Use Types Packs/Day Years Used Date Smoking Tobacco: Never Smokeless Tobacco: Never Alcohol Use Standard Drinks/Week Comments Yes 0 (1 standard drink = 0.6 oz pure alcohol) Alcoholic Drinks/day: Occasional social drink Sex and Gender Information Value Date Recorded Sex Assigned at Not on file Legal Sex Male 4:49 PM EST Gender Identity Not on file Sexual Orientation Not on file Last Filed Vital Signs Vital Sign Reading Time Taken Comments Blood Pressure 128/80 05/27/2022 1:06 PM EDT Pulse 64 05/27/2022 1:06 PM EDT Temperature - - Respiratory Rate - - Oxygen Saturation 96% 04/10/2021 3:26 PM EDT Inhaled Oxygen Concentration - - Weight 98 kg (216 lb) 04/10/2021 3:26 PM EDT Height 182.9 cm (6') 12/02/2019 12:01 PM EDT Body Mass Index 29.29 12/02/2019 12:01 PM EDT Plan of Treatment Health Maintenance Due Date Last Done Comments Pneumococcal Vaccine: 50+ Ye ars (1 of 2 - PCV) 1976 Colorectal Cancer Screening: Annual FOBT 2006 Colorectal Cancer Screening: Colonoscopy 2006 Colorectal Cancer Screening: Sigmoidoscopy 2006 Influenza Vaccine (#1) 2025 Hepatitis B Vaccine Aged Out No longe r eligible based on patient's age to complete this topic Insurance [facility] Care Teams Edi Specialist Relationship Specialty Start Date End Date Shun Perkins MD [address] [place] [address] [facility] - General 08/07/20
[2025-05-23 13:55] LABS: Anion Gap 13 (12-20); Blood Urea Nitrogen 19 mg/dL (9-16); Calcium 9.1 mg/dL (8.4-10.2); Carbon Dioxide 26 mmol/L (22-29); Chloride 108 mmol/L (96-108); Estimated Glomerular Filt Rate > 60; Potassium 3.8 mmol/L (3.3-5.1); Sodium 143 mmol/L (135-145)
== END 2025-05-23 09:37 | disposition home or self-care (01) ==
LOC: HO.HKASLDS 09:36
PROVIDERS: PCP Internal Medicine; Visit Provider Internal Medicine Hypertension Specialist
DX: I10 Essential (primary) hypertension (principal)
CPT/HCPCS: 36415; 80048

== ENCOUNTER 2025-05-26 10:46 | Outpatient (AMB) | payer OTHER, SELFPAY ==
--- OUTSIDE RECORDS SUMMARY | 2025-04-11 10:58 | XMS_ITS ---
Author Organization [facility] Address [address] [place], [place] [phone] Care Team Providers Care Outreach Specialist Name Role Phone ROBERT ENGEL Primary Care Provider REASON FOR VISIT Referral to hospital pharmacist Encounters Encounter Location Date Provider Diagnosis [facility] [address] [place] [phone] 04/11/2025 ROBERT ENGEL PLAN OF TREATMENT Next Appt Details Provider Name:ROBERT MCCORD, 07/18/2025 12:45:00 PM, [address] [place], [address],
--- OUTSIDE RECORDS SUMMARY | 2025-04-13 07:23 | XMS_ITS ---
Author Organization [facility] Address [address] [place], [place] [phone] Care Team Providers Care Make Up Arranger Name Role Phone ROBERT ENGEL Primary Care Provider [phone] REASON FOR REFERRAL Reason Referral to Dr. Pricila Lambert pulmonary send the past pulmonary consult notes my note in the last year x-rays CAT scans to him Diagnosis 1 Nocturnal hypoxia (G 47.34) Referral Organization [facility] Referring Provider First Name ROBERT Referring Provider Last Name TORO Referring Provider Speciality Internal M edicine Referral Priority Routine REASON FOR VISIT dr mari Encounters Encounter Location Date Provider Diagnosis [address] [address] 04/13/2025 ROBERT ENGEL Nocturnal hypoxia G47.34 ASSESSMENTS Encounter Date Diagnosis Assessment Notes Treatment Notes Treatment Clinical Notes Section Notes 04/13/2025 Nocturnal hypoxia (ICD-10 - G47.34) PLAN OF TREATMENT Referrals Referral Date Details Referral to Dr. Pricila Lambert pulmonary send the past pulmonary consult notes my note in the last year x-rays CAT scans to him Next Appt Details Provider Name:ROBERT MCCORD, 07/18/2025 12:45:00 PM, [address] [place], [address], Consultation Request Notes Referral Date Referring Provider Referred Provider Not es 04/13/2025 ROBERT ENGEL , Referral to Dr. Jason Lambert pulmonary send the past pulmonary consult notes my note in the last year x-rays CAT scans to him
--- OUTSIDE RECORDS SUMMARY | 2025-04-14 06:30 | XMS_ITS ---
Author Organization [facility] Address [address] [place], [place] [phone] Care Team Providers Care Grocery Clerk Marking Name Role Phone ROBERT ENGEL Primary Care Provider REASON FOR VISIT Fax Info Encounters Encounter Location Date Provider Diagnosis [facility] [address] [place] [phone] 04/14/2025 ROBERT ENGEL PLAN OF TREATMENT Next Appt Details Provider Name:ROBERT MCCORD, 07/18/2025 12:45:00 PM, [address] [place], [address],
--- OUTSIDE RECORDS SUMMARY | 2025-04-16 06:05 | XMS_ITS ---
Author Organization [facility] Address [address] [place], [place] [phone] Care Team Providers Care Crew Truck Driver Name Role Phone ROBERT ENGEL Primary Care Provider [phone] Encounters Encounter Location Date Provider Diagnosis [address] [address] 04/16/2025 ROBERT ENGEL PLAN OF TREATMENT Next Appt Details Provider Name:ROBERT MCCORD, 07/18/2025 12:45:00 PM, [address] [place], [address],
--- OUTSIDE RECORDS SUMMARY | 2025-04-16 06:10 | XMS_ITS ---
Author Organization [facility] Address [address] [place], [place] [phone] Care Team Providers Care Care Management Associate Name Role Phone ROBERT ENGEL Primary Care Provider RESULTS Component Value Reference Range Notes Exercise Stress Test Reviewed date:05/03/2025 09:22:09 AM Interpretation: Performing Lab: Notes/Report: Exercise Stress Test Reviewed date:05/03/2025 09:22:09 AM Interpretation: Performing Lab: Notes/Report: Encounters Encounter Location Date Provider Diagnosis [address] [address] 04/16/2025 ROBERT ENGEL Nocturnal hypoxia G47.34 ASSESSMENTS Encounter Date Diagnosis Assessment Notes Treatment Notes Treatment Clinical Notes Section Notes 04/16/2025 Nocturnal hypoxia (ICD-10 - G47.34) PLAN OF TREATMENT Next Appt Details Provider Name:ROBERT MCCORD, 07/18/2025 12:45:00 PM, [address] [place] [address], [phone],
--- OUTSIDE RECORDS SUMMARY | 2025-04-18 07:03 | XMS_ITS ---
Author Organization [facility] Address [address] [place], [place] [phone] Care Team Providers Care Platen Press Operator Name Role Phone ROBERT ENGEL Primary Care Provider [phone] tena notes Encounters Encounter Location Date Provider Diagnosis [facility] [address] [place] [address] 04/18/2025 ROBERT ENGEL PLAN OF TREATMENT Next Appt Details Provider Name:ROBERT MCCORD, 07/18/2025 12:45:00 PM, [address] [place], [address],
--- OUTSIDE RECORDS SUMMARY | 2025-04-21 09:54 | XMS_ITS ---
Author Organization [facility] Address [address] [place], [place] [phone] Care Team Providers Care Director Of Casework Services Name Role Phone ROBERT ENGEL Primary Care Provider REASON FOR VISIT Pulm Referral Encounters Encounter Location Date Provider Diagnosis [address] [address] 04/21/2025 ROBERT ENGEL PLAN OF TREATMENT Next Appt Details Provider Name:ROBERT MCCORD, 07/18/2025 12:45:00 PM, [address] [place], [address],
--- OUTSIDE RECORDS SUMMARY | 2025-04-26 09:59 | XMS_ITS ---
Author Organization [facility] Address [address] [place], [place] [phone] Care Team Providers Care Air Brake Operator Name Role Phone ROBERT ENGEL Primary Care Provider REASON FOR VISIT Fax Order Encounters Encounter Location Date Provider Diagnosis [address] [address] 04/26/2025 ROBERT ENGEL PLAN OF TREATMENT Next Appt Details Provider Name:ROBERT MCCORD, 07/18/2025 12:45:00 PM, [address] [place], [address],
--- OUTSIDE RECORDS SUMMARY | 2025-05-03 05:21 | XMS_ITS ---
Author Organization [facility] Address [address] [place], [place] [phone] Care Team Providers Care Sewer Pipe Layer Name Role Phone ROBERT ENGEL Primary Care Provider REASON FOR VISIT stress test Encounters Encounter Location Date Provider Diagnosis [facility] [address] [place] [phone] 05/03/2025 ROBERT ENGEL PLAN OF TREATMENT Next Appt Details Provider Name:ROBERT MCCORD, 07/18/2025 12:45:00 PM, [address] [place], [address],
--- OUTSIDE RECORDS SUMMARY | 2025-05-17 07:12 | XMS_ITS ---
Author Organization [facility] Address [address] [place], [place] [phone] Care Team Providers Care Tarper Name Role Phone ROBERT ENGEL Primary Care Provider REASON FOR VISIT Fax Info Encounters Encounter Location Date Provider Diagnosis [facility] [address] [place] [address] 05/17/2025 ROBERT ENGEL PLAN OF TREATMENT Next Appt Details Provider Name:ROBERT MCCORD, 07/18/2025 12:45:00 PM, [address] [place], [address],
--- NOTE | 2025-05-26 11:05 | HO.NEPHOV ---
Vital Signs 05/26/25 11:06 Height 6 ft Weight 148 lb 4 oz BMI 20.1 BP 124/80 Blood Pressure Location Lt brachial Position Sitting Pulse 86 Pulse Source Pulse Oximeter Pulse Oximetry (%) 92 Oxygen Delivery Method Room Air Intake Visit Reasons: 10 mon follow up-[facility] Core Shaper Sides Required: No Accompanied by: Self / Same As Patient Allergies No Known Allergies Allergy (Verified 05/26/25 11:06) HPI Comments Details: I had the delight of seeing Darshan in follow-up for his hypertension. He continues to be very active. He is compliant with his medications. He had TURP . At that time he was found to bladder cancer which has been closely followed by Urology. He is back to baseline. He denies any chest pain, shortness of breath, proximal nocturnal dyspnea, orthopnea, pedal edema. He has no urinary or orthostatic symptoms. He does not take any excessive nonsteroidal anti-inflammatory medications. He monitors his blood pressure at home and is well controlled. He is not a smoker. His triglyceride levels have been high he but continues to take his simvastatin regularly. He hydrates himself well. He had no active complaints at the time of this office visit. [facility] Medical History (Updated 06/13/23 @ 05:35 by Ron Siegel MD) Hypertension Family History Mother Hypertension Father Hypertension Social History Alcohol intake: current Patient Tobacco Use Status: Never used Tobacco Review of Systems Const All systems reviewed & are unremarkable except as noted in HPI and below Physical Exam Vital Signs: Last Vital Signs Pulse 86 05/26/25 11:06 BP 124/80 05/26/25 11:06 Pulse Ox 92 05/26/25 11:06 Oxygen Delivery Method Room Air 05/26/25 11:06 BMI result Body Mass Index 20.1 Const General: comfortable and no acute distress Orientation/consciousness: patient oriented x3 HEENT Head: Yes normocephalic Mouth: Normal oral and palatal mucosa present Eyes EOM: EOMs intact bilaterally Neck Neck: Yes supple Resp Auscultation: clear to auscultation bilaterally Cardio Jugular venous distension: no JVD Rate: regular rate GI Palpation (GI): Soft to palpation Auscultation: normal bowel sounds General: Yes no CVA tenderness Back/Spine/Pelvis Back: no CVA tenderness Skin General skin exam: no rashes or lesions noted Neuro General: patient oriented x3 and moves all extremities Extrem General: Yes no pedal edema Results Reviewed Nephrology Results: Sodium, (135-145) 143 mmol/L 05/23/25 Potassium, (3.3-5.1) 3.8 mmol/L 05/23/25 Chloride, (96-108) 108 mmol/L 05/23/25 Carbon Dioxide, (22-29) 26 mmol/L 05/23/25 BUN, (9-16) 19 mg/dL H 05/23/25 Creatinine, (0.5-1.4) 0.97 mg/dL 05/23/25 Calcium, (8.4-10.2) 9.1 mg/dL 05/23/25 Assessment & Plan Assessment & Plan (1) Hypertension: Code(s): I10 - Essential (primary) hypertension Category: Medical Qualifiers: Hypertension type: primary hypertension Qualified Code(s): I10 - Essential (primary) hypertension Plan Darshan has longstanding hypertension. His blood pressure is currently well controlled . He tries to maintain a low-sodium diet. He is very active. He is not a smoker. He could continue his current dose of antihypertensive medications and statins. He has no myalgia. His liver functions had been normal as per the patient. His electrolytes and renal functions had been acceptable. He follows up closely with urologist. I did not make any medication changes today. Follow-up lab ordered. Orders: Orders Protein Creatinine Ratio, Ur 1 Year I10 - Essential (primary) hypertension Calcium 1 Year I10 - Essential (primary) hypertension Creatinine 1 Year I10 - Essential (primary) hypertension Blood Urea Nitrogen 1 Year I10 - Essential (primary) hypertension Electrolytes 1 Year I10 - Essential (primary) hypertension Medications: New losartan-hydrochlorothiazide 100-25 mg 1 tab PO DAILY 90 tabs 5RF Coding Level of Care Code Est Pt Level 4 (65038) Diagnoses Primary hypertension I10 Hypertension type: primary hypertension
[2025-05-26 11:06] VITALS: BP 124/80; PULSE 86; O2SAT 92; BMI 20.1
--- OUTSIDE RECORDS SUMMARY | 2025-05-26 13:17 | XMS_ITS | Patient Health Record ---
Author Organization [facility] Address [address], [place] [id number] Care Team Providers Care Food Service Sales Representatives Name Role Phone ROBERT ENGEL Primary Care Provider ALLERGIES No Known Allergies REASON FOR REFERRAL Reason HOLD FOR LOCKED NOTE OV Dr. Hernández for shortness of breath and lower than expected oxygen saturation Diagnosis 1 Shortness of breath on exertion (R06.02) Referral Organization [facility] Referring Provider First Name ROBERT Referring Provider Last Name TORO Referring Provider Speciality Internal edicine Referred Provider MARY HERNÁNDEZ Referred Provider Specialty Pulmonary Di seases General Notes hold for locked note , Merlene BISHOP 09/03/2024 01:52:43 PM > Per telephone encounter pt saw Dr Hernández on 08/05/24>no referral required as is in network with Insurance plan>faxed to [phone] >encounter closed Referral Priority Urgent Referral Appointment Date 08/05/2024 Diagnosis 1 Borderline low oxyge n saturation level (R79.81) Referral Organization [facility] Referring Provider First Name ROBERT Referring Provider Last Name TORO Referring Provider Speciality Internal edicine General Notes Karlie BISHOP [place] 08/2024 04:00:58 PM > blank ref , pulm ref was previously started Referral Priority Routine Reason Referral to Dr. Carrie Whitlock [facility] for the left knee pain Diagnosis 1 Knee pain, unspecifi ed chronicity, unspecified laterality (M25.569) Referral Organization [facility] Referring Provider First Name ROBERT Referring Provider Last Name TORO Referring Provider Speciality Internal edicine Referral Priority Routine Reason 02/25/25 w appt Refe rral to Dr. Flavia Wetzel at [facility] evaluation for possible shellfish allergy Diagnosis 1 Allergy, sequela (T7 8.40XS) Referral Organization [facility] Referring Provider First Name ROBERT Referring Provider Last Name ENGEL Referring Provider [facility] Referred Provider FLAVIA WETZEL Referred Provider Specialty Allergy/Immu nology General Notes Merlene BISHOP P Admin 07/2024 08:34:59 AM > faxed medical referral and note (recent labs are in notes) to [facility] at [phone]>no referral required Referral Priority Routine Reason 03/04/25Referral to [facility] pulmonary for consultation regarding nocturnal hypoxia patient will call Diagnosis 1 Nocturnal hypoxia (G 47.34) Referral Organization [facility] Referring Provider First Name ROBERT Referring Provider Last Name TORO Referring Provider [facility] Referred Provider Specialty Pulmonary Di seases General Notes Merlene BISHOP P Admin 02/2025 09:16:31 AM > , Referral to [facility] pulmonary for consultation regarding nocturnal hypoxia, called [facility] at [phone] pt does not have appt>got fax number>also faxed oon paperwork to EDNA COLEY Lori P Admin 03/10/2025 10:46:56 AM > fax number is [phone]>office is OON with pts insurance>faxed OON Auth Request form to [facility] at [phone] Referral Priority Routine Reason [facility] Referral Organization [facility] Referring Provider First Name ROBERT Referring Provider Last Name TORO Referring Provider [facility] General Notes Calista BISHOP [place] 025 03:17:13 PM > [facility] Cardiology, Dr. Anders Campa , [address] [facility] , [address], [facility]. 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 Hernández says the patient has a [...] 1 Nocturnal hypoxia (G 47.34) Referral Organization [facility] Referring Provider First Name ROBERT Referring [...] Active confirmed Benign neopl asm of colon (24700553) Problem Abnormal findings on radiological or other exams of body structure, NEC (793.99) Active confirmed Radiology result abnormal (750029986) follow up cxr shows improved aeration in LLL, some residual scarring, likely related to previous pneumonia Problem Essential (primary) hypertension (I10) Active confirmed Essential hypertension (19661130) Problem Personal history of colonic polyps (Z86.010) Active confirmed 847236364 Problem Disorder of lipoprotein metabolism, 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) (701397614) Problem Nocturnal hypoxia (G47.34) Active confirmed 953102238 Problem Erectile dysfunction, unspecified erectile dysfunction type (N52.9) Active confirmed 880210940 Problem Benign prostatic hyperplasia, unspecified whether lower urinary tract symptoms present (N40.0) Active confirmed 488156252 Problem Allergy, sequela (T78.40XS) Active confirmed 172123441 VITAL SIGNS Blood pressure diastolic 78 mm Hg 02/24/2025 Height 72 in 02/24/2025 Blood pressure systolic 126 mm Hg 02/24/2025 Weight 230 lbs 02/24/2025 BMI 31.19 kg/m2 02/24/2025 Encounters Encounter Location Date Provider Diagnosis [address] [address] 06/01/2024 ROBERT ENGEL Essential (primary) hypertension I10 ; Disorder of lipoprotein metabolism, unspecified E78.9 and Benign prostatic hyperplasia, unspecified whether lower urinary tract symptoms present N40.0 [place] [phone] 2024 ROBERT ENGEL Essential (primary) hypertension I10 and Disorder of lipoprotein metabolism, unspecified E78.9 [place] [phone] 07/15/2024 ROBERT ENGEL Essential (primary) hypertension I10 ; Disorder of lipoprotein metabolism, unspecified E78.9 ; Pre-diabetes R73.03 ; Benign prostatic hyperplasia, unspecified whether lower urinary tract symptoms present N40.0 ; Borderline low oxygen saturation level R79.81 and Shortness of breath on exertion R06.[address] [address] 07/16/2024 ROBERT ENGEL [address] [address] 07/16/2024 ROBERT ENGEL [place] [address]/16/2024 ROBERT ENGEL [address] [address] 07/19/2024 ROBERT ENGEL [address] [address] 07/19/2024 ROBERT ENGEL [address] [address] 07/24/2024 ROBERT ENGEL Pre-diabetes R73.03 [place] [phone] 08/04/2024 ROBERT ENGEL [facility] [address] [place] [address] 08/06/2024 ROBERT ENGEL [facility] [address] [place] [address] 10/20/2024 ROBERT [facility] [address] [place] [address] 12/06/2024 ROBERT ENGEL [facility] [address] [place] [address] 01/10/2025 ROBERT ENGEL [facility] [address] [place] [address] 01/10/2025 [facility] [address] [place] [address] 01/13/2025 ROBERT ENGEL Knee pain, unspecified chronicity, unspecified laterality M25.569 ; Essential (primary) hypertension I10 ; Disorder of lipoprotein metabolism, unspecified E78.9 ; Pre-diabetes R73.03 ; Colon cancer screening Z12.11 and Bladder tumor D49.[address] [address] 01/14/[address] [address] 02/21/[address] [address] 02/24/2025 ROBERT ENGEL Essential (primary) hypertension I10 ; Disorder of lipoprotein metabolism, unspecified E78.9 ; Colon cancer screening Z12.11 ; Bladder tumor D49.4 ; Nocturia R35.1 ; Erectile dysfunction, unspecified erectile dysfunction type N52.9 ; Allergy, sequela T78.40XS and Nocturnal hypoxia G47.[address] [address] 03/02/2025 [facility] [address] [place] [address] 03/04/[address] [address] 03/07/[address] [address] 03/10/[address] [address] 04/11/[address] [facility] [address] [place] [address] 04/13/2025 ROBERT ENGEL Nocturnal hypoxia G47.[address] [facility] [address] [place] [address], [place] [address] 04/14/2025 ROBERT ENGEL [address] [place] [address] 04/16/[address] [facility] [address] [place] [address], [place] [address] 04/16/2025 ROBERT ENGEL Nocturnal hypoxia G47.[address] [place] [address] 04/18/2025 ROBERT ENGEL [address] [place] [address] 04/21/2025 ROBERT ENGEL [address] [place] [address] 04/26/2025 ROBERT ENGEL [address] [address] 05/03/2025 ROBERT ENGEL [address] [address] 05/17/2025 ROBERT ENGEL ASSESSMENTS Encounter Date Diagnosis [...] reports. Also put a consult in for [facility] Department of pulmonary PLAN OF TREATMENT Future Test Test Name Order Date Prostate-Specific Ag (PSA)-[id number] 2023 CBC, Platelet, w/o Differential-[id number] 1 08/22/2023 Lipid Panel-[id number] 06/22/2024 Hepatic Function Panel ([id number] 2023 BMP8+eGFR-[id number] 06/22/2024 Next Appt Details Provider Name:ROBERT MCCORD, 07/18/2025 12:45:00 PM, [address] [place], [address], Insurance Providers Payer Name Payer Address Payer Phone Subscriber Number Group Number Insured Name Patient Relationship to Insured Coverage Start Date Coverage End Date [facility] [address] JE[place] Humphrey [place] [id number] Self - patient is [...]
--- OUTSIDE RECORDS SUMMARY | 2025-05-26 13:17 | XMS_ITS | Clinical Summary ---
Author Organization [facility] Address [address] [place] [address] [place] [address] Phone Care Team Providers Care Counter Waiter Name Role Phone Shun Perkins MD Primary Care Provider [phone] Encounters Date Type Department Care Team Description 03/04/2025 Telephone [facility] [address] [place] [address] Unknown, Unknown, Insurance Non- Contracted from Last [...] [place] [id number] [facility] [place], [place] [facility] [place] [address] [facility] HMO Care Teams Counter Waiter Relationship Specialty Start Date End Date Shun Perkins MD [address] [place] [address] PCP - General Internal Medicine 03/02/25 Additional Source Comments The information contained in this document represents components of the legal health record. It is not the complete legal health record.[facility]
--- OUTSIDE RECORDS SUMMARY | 2025-05-26 13:17 | XMS_ITS | Clinical Summary ---
Author Organization [facility] Address [address] [facility] [address] [place] [address] Phone Care Team Providers Care Mortgage Loan Closer Name Role Phone Shun Perkins MD Primary [...] patient's age to complete this topic Insurance [facility] Care Teams Mortgage Loan Closer Relationship Specialty Start Date End Date Shun Perkins MD [address] [place] [address] [facility] - General 08/07/20
--- OUTSIDE RECORDS SUMMARY | 2025-05-26 13:17 | XMS_ITS | Encounter Summary ---
Author Organization [facility] [place] [address] Care Team Providers Care Color Blender Name Role Phone Shun Perkins MD Primary Care Provider + [phone] Encounter Details Date Type Department Care Team (Late Contact Info) Description 11/29/2024 Lab Requisition [facility] - Main Lab [address] [facility] [place] [address] Antonio Romero MD [address] [facility] [address] [place] [phone] Malignant neoplasm of dome of bladder ([facility]/HCC V24, [facility]/HCC V28) Social History Tobacco Use Types Packs/Day [...] Info) Description 06/07/2025 8:30 AM EST Appointment [facility] CT Scan [address] [place] [address] 06/21/2025 9:30 AM EST Office Visit Pulmonology - [place] [address] [facility] [place] [address] Kellee Hernández MD [address] [place] [address] 08/10/2025 2:30 PM EST Office Visit [facility] - [facility] [address] [place] [address] Anders Campa MD [address] [place] [address] [address] [place] [address] documented as of this encounter Procedures Procedure Name Priority Date/Time Associated Diagnosis Comments AP OUTSIDE CONSULT Routine 11/24/2024 12 :00 AM EDT Malignant neoplasm of dome of bladder (CMS/HCC V24, CMS/HCC V28) documented in this encounter Results * Anatomic pathology outside consult (11/24/2024 12:00 AM EDT) Final Diagnosis A. Urine, Voided, ([id number]): Negative for high grade urothelial carcinoma. Results of UroVysion fluorescence in situ hybridization (FISH) testing: CEP3: Normal CEP7: Normal CEP17: Normal LSI 9p21: Normal Interpretation: Normal profile Controls stained appropriately. Note: The results are intended as a screening device and should be interpreted in association with other clinical and pathological findings. 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 Urine, Voided, [id number]: Received one ThinPrep slide for cytology and one ThinPrep slide for UroVysion FISH 12/02/2024 12:29 PM EDT [facility] Disclaimer Unless otherwise specified, all tissue is 10% NB formalin fixed and paraffin embedded. Technical pathology services provided by [facility] at [address], [place] [address] (CLIA #[id number]/Gianna Fuentes MD, Death Surveys Coder) 12/02/2024 12:29 PM EDT [facility] Tissue Urine specimen from urethra / Unknown 11/24/2024 11/29/2024 10:10 AM EDT us Antonio Romero MD LAB PATHOLOGY ORDERABLES Final Result [facility] [address] [place] [address], documented in this encounter Visit Diagnoses Diagnosis Malignant neoplasm of dome of bladder (CMS/HCC V24, CMS/HCC V28) Malignant neoplasm of dome of urinary bladder documented in this encounter Care Teams Color Blender Relationship Specialty Start Date End Date Shun Perkins MD [address] [place] [address] PCP - General Internal Medicine 06/25/24 documented as of this encounter
--- OUTSIDE RECORDS SUMMARY | 2025-05-26 13:17 | XMS_ITS | Clinical Summary ---
Author Organization [facility] Address [address] [place] [address] Phone Care Team Providers Care Employment Supervisor Name Role Phone Shun Perkins MD Primary Care Provider [phone] Allergies No known active allergies Medications losartan-hydroC [...] Type Department Care Team Description 04/25/2025 Telephone [facility] Cardiology [facility] [address] [facility] [address] [place] [address] Shun Perkins MD 04/21/2025 Telephone [facility] [address] [place] [address] Shun Perkins MD 04/20/2025 Telephone Pulmonology [facility] [address] [place] [phone] Anna Bergeron [place] 04/19/2025 Telephone Pulmonology [facility] [address] [facility] [address] [place] [address] Kellee Hernández MD 04/15/2025 Telephone [facility] Cardiology [facility] [address] [place] [phone] Shun Perkins MD 04/14/[address] [place] [address] Shun Perkins MD 04/14/[address] [place] [address] Shun Perkins MD 04/11/2025 2:30 PM EDT Office Visit Pulmonology [facility] [address] [facility] [address] [place] [address] Kellee Hernández MD Pneumonia due to infectious organism, unspecified laterality, unspecified part of lung (Primary Dx); Obstructive sleep apnea; Obesity (BMI 30-39.9); PFO (patent foramen ovale) 04/05/2025 12:30 PM EDT Ancillary Procedure [facility] [address] [place] [phone] Hypoxia; Obstructive sleep apnea; Pulmonary arterial hypertension (CMS/HCC V24, CMS/HCC V28) 03/11/2025 Telephone Pulmonology [facility] [address] [facility] [address] [place] [address] Kellee Hernández MD from Last 3 Months [...] Info) Description 06/07/2025 8:30 AM EST Appointment [facility] CT Scan [address] [place] [address] 06/21/2025 9:30 AM EST Office Visit Pulmonology - [place] [address] [facility] [address] [place] [address] Kellee Hernández MD [address] [place] [phone] 08/10/2025 2:30 PM EST Office Visit [facility] - [facility] [address] [facility] [address] [place] [address] Anders Campa MD [address] [place] [address] [address] [place] [phone] Health Maintenance Due Date Last Done Comments [...] (04/05/2025 1:24 PM EDT) Left Atrium Minor Ellsworth 5.9 cm CV PACS Left Atrium Major Ellsworth 5.8 cm CV PACS [facility] Area Sys [...] shunt across the atrial septum. There is jimy-zs-phnwz shunt at rest and ziocj-re-svdn shunt on Valsalva noted. Right Ventricle: Right [...] shunt across the atrial septum. There is grrv-co-plhpg shunt at rest and roxvd-op-ezag shunt on Valsalva noted. Right Atrium Right [...] Res ult * COLONOSCOPY Anesthesia - MAC; [facility] ENDOSCOPY (07/07/2024 10:01 AM EST) [...] for surveillance. Narrative 07/07/2024 10:06 AM EST [facility] GI Patient Name: Pito Grande Procedure Date: [...] retroflexion views. Procedure Code(s): --- Professional --- 59325, Colonoscopy, flexible; with removal of tumor(s), polyp(s), or other lesion(s) by snare technique Diagnosis Code(s): --- Professional --- Z86.010, Personal history of colonic polyps D12.3, Benign neoplasm of transverse colon (hepatic flexure or splenic flexure) CPT copyright 2020 [employer]. All rights reserved. The codes documented in this report are preliminary and upon commercial coordinator review may be revised to meet current compliance requirements. Pito Bernabe MD 07/07/2024 10:05:54 AM This report has been signed electronically.Pito Bernabe MD Number of Addenda: 0 Note Initiated On: 07/07/2024 9:43 AM Scope In: Scope Out: Endoscopy Department at [facility] - [address] [place] [address] Procedure Note Pito Bernabe MD - 07/07/2024 [facility] Patient Name: Pito Grande Procedure Date: [...] retroflexion views. Procedure Code(s): --- Professional --- 86765, Colonoscopy, flexible; with removal of tumor(s), polyp(s), or other lesion(s) by snare technique Diagnosis Code(s): --- Professional --- Z86.010, Personal history of colonic polyps D12.3, Benign neoplasm of transverse colon (hepatic flexure or splenic flexure) CPT copyright 2020 [employer]. All rights reserved. The codes documented in this report are preliminary and upon commercial coordinator reviewmay be revised to meet current compliance requirements. Pito Bernabe MD 07/07/2024 10:05:54 AM This report has been signed electronically.Pito Bernabe MD Number of Addenda: 0 Note Initiated On: 07/07/2024 9:43 AM Scope In: Scope Out: Endoscopy Department at [facility] - [address] [place] [address] IMPRESSION: - Diverticulosis in the sigmoid colon. - Three 5 to 7 mm polyps at the hepatic flexure, removed with a cold snare. Resected andretrieved. - The examination was otherwise normal on directand retroflexion views. Recommendation: - Await pathology results. - Repeat colonoscopy in 3 years for surveillance. us Pito Bernabe MD GI~PROCEDURE ORDERABLES Fin al Result from Last 3 Months or Most Recently Relevant to Health Maintenance [id number] [id number] [facility] Care Teams Employment Supervisor Relationship Specialty Start Date End Date Shun Perkins MD [address] [place] [address] PCP - General Internal Medicine 06/25/24
--- OUTSIDE RECORDS SUMMARY | 2025-05-26 13:17 | XMS_ITS | Encounter Summary ---
Author Organization [facility] Address [address] [place] [address] [place] [address] Phone Care Team Providers Care Dowel Inserting Machine Operator Name Role Phone Shun Perkins MD Primary Care Provider + [phone] Reason for Visit * Reason Onset Date Comments Insurance Non- Contracted 03/04/2025 Encounter Details Date Type Department Care Team (Late st Contact Info) Description 03/04/2025 Telephone [facility] [address] [place] [address] Unknown, Unknown, Insurance Non- Contracted Social History [...] to discuss and advise. Thanks, [facility] Coordinator Department of Medicine documented in this encounter Plan of Treatment Not on file documented as of this encounter Visit Diagnoses Not on filedocumented in this encounter Care Teams Dowel Inserting Machine Operator Relationship Specialty Start Date End Date Shun Perkins MD [address] [place] [address] PCP - General Internal Medicine 03/02/25 documented as of this encounter Additional Source Comments The information contained in this document represents components of the legal health record. It is not the complete legal health record.[facility]
--- OUTSIDE RECORDS SUMMARY | 2025-05-26 13:17 | XMS_ITS | Encounter Summary ---
Author Organization [facility] Address [address] [place] [address] Care Team Providers Care Collar Pointer Name Role Phone Shun Perkins MD Primary Care Provider [phone] Encounter Details Date Type Department Care Team (Late st Contact Info) Description 04/20/2025 Scanned Document Orthopedic [facility] [address] [address] Shukri Whitlock MD [address] [place] [address] Social History Tobacco Use Types Packs/Day Years [...] Care Team (Late st Contact Info) Description 06/09/2025 9:00 AM EST Office Visit Orthopedic [facility] [address] [place] [address] Shukri Whitlock MD [address] [place] [phone] documented as of this encounter Visit Diagnoses Not on filedocumented in this encounter Care Teams Collar Pointer Relationship Specialty Start Date End Date Shun Perkins MD [address] [place] [address] PCP - General Internal Medicine 04/12/25 documented as of this encounter
--- OUTSIDE RECORDS SUMMARY | 2025-05-26 13:17 | XMS_ITS | Clinical Summary ---
Author Organization [facility] Address [address] [place] [address] Care Team Providers Care Water Quality Control Engineer Name Role Phone Robert Engel MD Primary Care Provider [phone] Medications No known medications Active Problems No known active problems Encounters Date Type Department Care Team Description 04/20/2025 Scanned Document [facility] [address] [place] [address] Shukri Whitlock MD 04/20/2025 Orders Only [facility] [address] [phone] Shukri Whitlock MD Acute pain of left knee (Primary Dx) 04/20/2025 Orders Only [facility] [address] [phone] Shukri Whitlock MD 04/12/2025 3:15 PM EDT Office Visit [facility] [address] [phone] Shukri Whitlock MD Acute pain of left knee (Primary Dx) 03/01/2025 2:35 PM EDT Ancillary Procedure [facility] [address] [phone] 03/01/2025 2:15 PM EDT Consult [facility] [address] [phone] Shukri Whitlock MD Acute pain of left [...] 06/09/2025 9:00 AM EST Office Visit [facility] [address] [place] [phone] Shukri Whitlock MD [address] [place] [address] Health Maintenance Due Date Last Done Comments Advance Care Planning 1955 Hepatitis C Virus Screening 1955 DTaP/Tdap/Td Vaccines (1 - Tdap) 1976 Pneumococcal Vaccines 50+ (1 of 1 - PCV) 2007 Zoster (Shingles) Vaccine (1 of 2) 2007 Influenza Vaccine 02/25/2025 COVID-19 Vaccine (1 - 2023-2 5 season) 2025 RSV Vaccine 50 years and old er and Patients (1 - 1-dose 75+ series) 2032 Colonoscopy 07/07/2034 07/07/2024 Hepatitis B Vaccines Aged Out No long er eligible based on patient's age to complete this topic Procedures Procedure Name Priority Date/Time Associated Diagnosis Comments MRI KNEE W/O CONTRAST-LEFT Routine 05/18/2025 7:30 AM EDT Acute pain of left knee [place] ARTHROCENTESIS ASPIR&/INJ MAJOR JT/BURSA W/O US Routine [...] your patient to us, Maciej Flores MD [phone] (Electronically Signed - 05/19/2025 13:54) Copy: ROBERT ENGEL MD [address] [address] PATIENT , Narrative 05/19/2025 1:54 [...] effusion. Procedure Note Maciej Flores MD - 05/19/2025 EXAMINATION: MR KNEE WITHOUT CONTRAST, LEFT CLINICAL [...] Flores MD 05/19/2025 01:54 PM EDT RPWorkstation: [id number] Thank you for referring your patient to us, Maciej Flores MD [phone] (Electronically Signed - 05/19/2025 13:54) Copy: ROBERT ENGEL MD [facility] [address] [place] [address] PATIENT , us Shukri Whitlock MD IM MRI ORDERABLES Final Result * [place] ARTHROCENTESIS ASPIR&/INJ MAJOR JT/BURSA W/O US (04/12/2025 [...] and draped in the usual sterile fashion. Shukri Whitlock MD PROCEDURE/MINOR SURGICAL ORDERABLES Final Result * XR Knee 4+ views-Left (03/01/2025 2:40 PM EDT) Narrative [facility] - 03/01/2025 2:40 PM EDT This exam was performed in office at [facility] and images reviewed by orthopedic provider. Any findings are documented within ambulatory encounter note on date of service. Shukri Whitlock MD IMG DIAGNOSTIC IMAGING O RDERABLES Final Result OA from Last 3 Months Insurance [facility] Care Teams Water Quality Control Engineer Relationship Specialty Start Date End Date Robert Engel MD [address] [place] [phone] PCP - General Internal Medicine 04/12/25
--- OUTSIDE RECORDS SUMMARY | 2025-05-26 13:17 | XMS_ITS | Encounter Summary ---
Author Organization [facility] [place] [address] Care Team Providers Care Figure Refinisher And Repairer Name Role Phone Shun Perkins MD Primary Care Provider [phone] Encounter Details Date Type Department Care Team (Late Contact Info) Description 06/04/2024 Lab Requisition [facility] [address] [facility] [place] [phone] Antonio Romero MD [address] [facility] [address] [place] [phone] Malignant neoplasm of dome of bladder ([facility]/HCC V24, CMS/HCC V28) Social History Tobacco Use [...] Info) Description 06/07/2025 8:30 AM EST Appointment [facility] Scan [address] [place] [address] 06/21/2025 9:30 AM EST Office Visit [facility] - [place] [address] [facility] [address] [place] [address] Kellee Hernández MD [address] [place] [phone] 08/10/2025 2:30 PM EST Office Visit [facility] [address] [place] [address] Anders Campa MD [address] [place] [address] [place] [phone] documented as of this encounter Procedures Procedure Name Priority Date/Time Associated Diagnosis Comments AP OUTSIDE CONSULT Routine 05/31/2024 12 :00 AM EST Malignant neoplasm of dome of bladder (CMS/HCC) documented in this encounter Results * Anatomic pathology outside consult (05/31/2024 12:00 AM EST) Final Diagnosis A. Urine, Voided ([id number]): Negative for high grade urothelial carcinoma. Results of [employer] fluorescence in situ hybridization (FISH) testing: CEP3: Normal CEP7: Normal CEP17: Normal LSI 9p21: Normal Interpretation: Normal profile Controls stained appropriately. Note: The results are intended as a screening device and should be interpreted in association with other clinical and pathological findings. 06/08/2024 12:[address] [facility] Gross Description A. Urine, Voided, : [id number] Received 1 TP (CYTO) 1 TP (FISH) 06/08/2024 12:[address] [facility] Disclaimer Unless otherwise specified, all tissue is 10% NB formalin fixed and paraffin embedded. 06/08/2024 12:35 PM [facility] Tissue Urine specimen from urethra / Unknown 05/31/2024 06/04/2024 4:27 PM EST Antonio Romero MD LAB PATHOLOGY ORDERABLES Final Result [facility] [address] [place] [address], documented in this encounter Visit Diagnoses Diagnosis Malignant neoplasm of dome of bladder (CMS/HCC V24, CMS/HCC V28) Malignant neoplasm of dome of urinary bladder documented in this encounter Care Teams Figure Refinisher And Repairer Relationship Specialty Start Date End Date Shun Perkins MD [address] [place] [address] PCP - General Internal Medicine 06/25/24 documented as of this encounter
== END 2025-05-26 11:30 | disposition home or self-care (01) ==
LOC: HO.HKAS 10:47
PROVIDERS: PCP Internal Medicine; Visit Provider Internal Medicine Nephrology
DX: I10 Essential (primary) hypertension (principal)
CPT/HCPCS: 99214